=== PATIENT | female | born 1945 | race Caucasian/White ===

== ENCOUNTER 2020-08-25 00:09 | Outpatient (CLI) | payer MEDICARE, OTHER, SELFPAY ==
[2020-08-25 19:00] LABS: SARS-CoV-2 RNA PCR Negative
== END 2020-08-25 00:10 | disposition home or self-care (01) ==
LOC: ANHCOVIDDT 00:09
PROVIDERS: PCP Internal Medicine; Visit Provider Internal Medicine Gastroenterology
DX: Z01.812 Encounter for preprocedural laboratory examination (principal); Z20.828 Contact with and (suspected) exposure to other viral communicable diseases
CPT/HCPCS: 87635; C9803; U0003

== ENCOUNTER 2020-08-27 00:53 | Day surgery (SDC) | payer MEDICARE, OTHER, SELFPAY ==
[2020-08-19 14:36] VITALS: BMI 32.8
--- NOTE | 2020-08-27 08:41 | WPDGICN ---
Assessment and Plan Assessment and plan (1) Chronic GERD: Code(s): K21.9 - Gastro-esophageal reflux disease without esophagitis Status: Acute Assessment and Plan: Patient with chronic GE reflux disease greater than 30 years. Recent mild dysphagia noted. Her dose of proton pump inhibitors has gradually increased. Plan is for surveillance EGD. Continue Nexium 40 mg p.o. daily. Anti-reflux measures. Further recommendations will be given after endoscopy. GI Consult Note Consult date/time: 08/27/20 08:41 HPI: Eve Lindsay is a 75 year old female seen in evaluation at the request of Dr Stephen. Patient has a long history of acid reflux. She has heartburn. Recently has noticed slow passage of food. She has been maintained on Nexium. The dose of medications over the years has gradually increased. Patient denies any bleeding or weight loss. Her family history is noncontributory. She states has been 30 years since last endoscopy. She is somewhat concerned because of dysphagia and poor response to medications recently. Review of Systems Review of Systems: All systems reviewed & are unremarkable except as noted in HPI and below PMFSH Past Medical History Medical History ITB syndrome Statin myopathy with simvastatin Social History Social History Years smoked: 15 Smoking status: Former smoker Tobacco type: cigarettes Second hand tobacco smoke exposure: No Alcohol intake: current Alcohol use details: Occasional Beer Substance use: never Substance use type: does not use Living arrangements: with family Gender identity (if verbalized by the patient): Female Spiritual care concerns: No Meds Home Medications and Allergies Home Medications Medication Instructions Recorded Confirmed Type coenzyme Q10 150 mg capsule 150 mg PO DAILY 90 Days #90 cap 08/05/20 08/19/20 Rx esomeprazole magnesium 40 mg 40 mg PO DAILY 90 Days #90 cap 08/05/20 08/19/20 Rx capsule,delayed release febuxostat 40 mg tablet 40 mg PO DAILY 90 Days #90 tablet 08/05/20 08/19/20 Rx metformin 500 mg tablet,extended 500 mg PO DAILY 90 Days #90 tablet 08/05/20 08/19/20 Rx release 24 hr omega-3 acid ethyl esters 1 gram 4 cap PO DAILY 90 Days #360 cap 08/05/20 08/19/20 Rx capsule rosuvastatin 10 mg tablet 10 mg PO DAILY 90 Days #90 tablet 08/05/20 08/19/20 Rx triamterene 75 1 tablet PO DAILY 90 Days #90 08/11/20 08/19/20 Rx mg-hydrochlorothiazide 50 mg tablet tablet calcium carbonate-vitamin D3 1 tablet PO BID 08/19/20 08/19/20 History [Calcium with Vitamin D] cholecalciferol (vitamin D3) 10 mcg PO DAILY 08/19/20 08/19/20 History [Vitamin D3] melatonin 10 mg PO HS PRN 08/19/20 08/19/20 History xdyfezfa-wfv-MP-lycopen-lutein 1 tablet PO DAILY 08/19/20 08/19/20 History [Centrum Silver] vitamin B complex [B 1 tablet PO DAILY 08/19/20 08/19/20 History Complex-Vitamin B12] Allergies Allergy/AdvReac Type Severity Reaction Status Date / Time amoxicillin Allergy Unknown Rash Verified 08/27/20 08:42 poison jag extract Allergy Unknown Rash Verified 08/27/20 08:42 Exam Narrative: Exam Narrative: Physical exam reveals patient to be alert. Vital signs stable. HEENT exam unremarkable. Lungs are clear to auscultation and percussion. Heart is without murmur or extra sounds. Abdominal exam bowel sounds are present soft nontender with no organomegaly. Digital external rectal exam normal.
[2020-08-27 08:47] VITALS: BP 149/77; PULSE 75; RESP 17; TEMP 36.3; O2SAT 100; BMI 33.8
[2020-08-27] MEDS: LACTATED RINGERS 1,000 ML 150 ML IV CONT (08:59)
[2020-08-27 09:03] LABS: Glucose Point of Care 106 (65-105)
--- NOTE | 2020-08-27 09:18 | WPDANESEPPF ---
Anes - Initial Pre Proc Eval Procedure: Operation Date: 08/27/20 09:30 Proposed Procedures p Esophagogastroduodenoscopy - Kennedy Fuentes MD Date/Time: 08/27/20 09:18 Surgeon: Kennedy Fuentes MD Pre Op Diagnosis: Gerd Patient Data Age: 75 Gender: F Height: 5 ft 3 in Weight: 86.7 kg Last Vital Signs Temp 36.3 C L 08/27/20 08:47 Pulse 75 08/27/20 08:47 Resp 17 08/27/20 08:47 BP 149/77 H 08/27/20 08:47 Pulse Ox 100 08/27/20 08:47 Allergies Allergy/AdvReac Type Severity Reaction Status Date / Time amoxicillin Allergy Unknown Rash Verified 08/27/20 08:42 poison jag extract Allergy Unknown Rash Verified 08/27/20 08:42 Home Medications Medication Instructions Recorded Confirmed Type coenzyme Q10 150 mg capsule 150 mg PO DAILY 90 Days #90 cap 08/05/20 08/27/20 Rx esomeprazole magnesium 40 mg 40 mg PO DAILY 90 Days #90 cap 08/05/20 08/27/20 Rx capsule,delayed release febuxostat 40 mg tablet 40 mg PO DAILY 90 Days #90 tablet 08/05/20 08/27/20 Rx metformin 500 mg tablet,extended 500 mg PO DAILY 90 Days #90 tablet 08/05/20 08/27/20 Rx release 24 hr omega-3 acid ethyl esters 1 gram 4 cap PO DAILY 90 Days #360 cap 08/05/20 08/27/20 Rx capsule rosuvastatin 10 mg tablet 10 mg PO DAILY 90 Days #90 tablet 08/05/20 08/27/20 Rx triamterene 75 1 tablet PO DAILY 90 Days #90 08/11/20 08/27/20 Rx mg-hydrochlorothiazide 50 mg tablet tablet calcium carbonate-vitamin D3 1 tablet PO BID 08/19/20 08/27/20 History [Calcium with Vitamin D] cholecalciferol (vitamin D3) 10 mcg PO DAILY 08/19/20 08/27/20 History [Vitamin D3] melatonin 10 mg PO HS PRN 08/19/20 08/27/20 History eficuaqp-ook-AS-lycopen-lutein 1 tablet PO DAILY 08/19/20 08/27/20 History [Centrum Silver] vitamin B complex [B 1 tablet PO DAILY 08/19/20 08/27/20 History Complex-Vitamin B12] Laboratory Tests 08/27/20 09:01 POC Capillary Glucose 106 mg/dl mg/dl (65-105) Patient hx anesthesia problems: none Family hx anesthesia problems: none PMFSH Past Medical History Medical History (Updated 08/27/20 @ 09:18 by Nathan Campbell MD) ITB syndrome Obesity Statin myopathy with simvastatin Social History Social History Years smoked: 15 Smoking status: Former smoker Tobacco type: cigarettes Second hand tobacco smoke exposure: No Alcohol intake: current Alcohol use details: Occasional Beer Substance use: never Substance use type: does not use Living arrangements: with family Gender identity (if verbalized by the patient): Female Spiritual care concerns: No Anes - Eval Final PreProcedure Day of Procedure 08/27/20 09:18 Patient weight: obese Heart: regular rate and rhythm Lungs: clear to auscultation Airway: Mallampati scale class II Neurological: alert and oriented Last oral intake: >/= 8 hours ASA classification: III Emergent: no Anesthetic plan: proceed Anesthesia type and monitoring: general GIVS and standard monitoring Informed Consent: The patient's anesthetic plan and its attendant risks and benefits were discussed with the patient/family/POA. Questions were solicited and answers provided to the satisfaction of the patient/family/POA.
[2020-08-27] MEDS: BENZOCAINE (*SP) 60 ML SPRAY CAN (HURRICAINE) 1 SPRAY MUCOUS MEM (09:32)
[2020-08-27 09:47] VITALS: BP 108/49; PULSE 64; RESP 27; O2SAT 97
[2020-08-27 09:57] VITALS: BP 98/53; PULSE 73; RESP 23; O2SAT 99
[2020-08-27 10:07] VITALS: BP 111/54; PULSE 74; RESP 18; O2SAT 100
== END 2020-08-27 10:35 | disposition home or self-care (01) ==
PROVIDERS: PCP Internal Medicine; Visit Provider Internal Medicine Gastroenterology
PROC: 0DJ08ZZ Inspection of Upper Intestinal Tract, Via Natural or Artificial Opening Endoscopic (ICD-10-PCS; CPT 43235; principal; 2020-08-27 09:30)
DX: K21.9 Gastro-esophageal reflux disease without esophagitis (principal); M76.30 Iliotibial band syndrome, unspecified leg; Z87.891 Personal history of nicotine dependence; E66.9 Obesity, unspecified; Z68.33 Body mass index [BMI] 33.0-33.9, adult
CPT/HCPCS: 43239; 87081; J2704; J7120

== ENCOUNTER → 2021-01-20 06:56 | Outpatient (CLI) | payer MEDICARE, OTHER, SELFPAY ==
[2021-01-20 17:21] LABS: SARS-CoV-2 RNA PCR Negative
== END ==
PROVIDERS: PCP Internal Medicine
DX: Z01.812 Encounter for preprocedural laboratory examination (principal); Z20.822 Contact with and (suspected) exposure to COVID-19
CPT/HCPCS: C9803; U0003; U0005

== ENCOUNTER → 2021-03-09 01:09 | Outpatient (CLI) | payer MEDICARE, OTHER, SELFPAY ==
[2021-03-09 20:47] LABS: SARS-CoV-2 RNA PCR Negative
== END ==
PROVIDERS: PCP Family Medicine; Visit Provider Internal Medicine Gastroenterology
DX: Z01.812 Encounter for preprocedural laboratory examination (principal); Z20.822 Contact with and (suspected) exposure to COVID-19
CPT/HCPCS: C9803; U0003; U0005

== ENCOUNTER 2021-03-12 01:44 | Day surgery (SDC) | payer MEDICARE, OTHER, SELFPAY ==
[2021-03-03 12:47] VITALS: BMI 32.8
[2021-03-12 10:36] LABS: Glucose Point of Care 85 (65-105)
[2021-03-12 10:37] VITALS: BP 142/70; PULSE 72; RESP 18; TEMP 36.2; O2SAT 100
[2021-03-12] MEDS: LACTATED RINGERS 1,000 ML 150 ML IV CONT (10:40)
--- NOTE | 2021-03-12 11:39 | WPDANESEPPF ---
Anes - Initial Pre Proc Eval Procedure: Operation Date: 03/12/21 11:30 Proposed Procedures p Colonoscopy - Kennedy Fuentes MD Date/Time: 03/12/21 11:39 Surgeon: Kennedy Fuentes MD Pre Op Diagnosis: elevated tumor marker (CEA level) Patient Data Age: 75 Gender: F Height: 5 ft 3 in Weight: 82 kg Last Vital Signs Temp 97.2 F L 03/12/21 10:37 Pulse 72 03/12/21 10:37 Resp 18 03/12/21 10:37 BP 142/70 H 03/12/21 10:37 Pulse Ox 100 03/12/21 10:37 Allergies Allergy/AdvReac Type Severity Reaction Status Date / Time rosuvastatin [From Crestor] Allergy Severe leg cramps Verified 03/12/21 10:34 simvastatin [From Zocor] Allergy Mild leg cramps Verified 03/12/21 10:34 Mqcinlj-Oqy-Kzi Reductase Allergy Mild leg cramps Verified 03/12/21 10:34 Inhibitor amoxicillin Allergy Unknown Rash Verified 03/12/21 10:34 poison jag extract Allergy Unknown Rash Verified 03/12/21 10:34 Home Medications Medication Instructions Recorded Confirmed Type calcium carbonate-vitamin D3 1 tablet PO BID 08/19/20 03/12/21 History [Calcium with Vitamin D] cholecalciferol (vitamin D3) 10 mcg PO DAILY 08/19/20 03/12/21 History [Vitamin D3] melatonin 10 mg PO HS PRN 08/19/20 03/12/21 History ejertzwb-ken-TS-lycopen-lutein 1 tablet PO DAILY 08/19/20 03/12/21 History [Centrum Silver] vitamin B complex [B 1 tablet PO DAILY 08/19/20 03/12/21 History Complex-Vitamin B12] evolocumab 140 mg/mL subcutaneous 140 mg SUBCUT .QMONTH 30 Days #1 ml 12/09/20 03/05/21 Rx pen injector metformin 500 mg tablet,extended 500 mg PO DAILY 90 Days #90 tablet 02/03/21 03/12/21 Rx release 24 hr febuxostat 40 mg tablet 40 mg PO DAILY 90 Days #90 tablet 02/24/21 03/12/21 Rx coenzyme Q10 150 mg capsule 150 mg PO DAILY cap 03/02/21 03/12/21 History esomeprazole magnesium [Nexium] 40 mg PO DAILY 03/03/21 03/12/21 History omega-3 acid ethyl esters [Lovaza] 4 cap PO DAILY 03/03/21 03/12/21 History triamterene-hydrochlorothiazid 1 tablet PO DAILY 03/03/21 03/12/21 History [Maxzide] Laboratory Tests 03/12/21 10:32 POC Capillary Glucose 85 mg/dl mg/dl (65-105) Patient hx anesthesia problems: none Family hx anesthesia problems: none PMFSH Past Medical History Medical History Arthritis Diabetes GERD (gastroesophageal reflux disease) ITB syndrome Obesity Statin myopathy with simvastatin Surgical History Surgical History H/O section 1969 1973 H/O knee surgery 01/20/2021 left side History of esophagogastroduodenoscopy 08/27/2020 Dr. Fuentes History of hip surgery right side 2010 Family History Family History Mother Hypertension Sibling Alcoholism Social History Social History Smoking packs per day: 1 Smoking cigarettes per day: 20.0 Years smoked: 15 Smoking pack-years: 15.00 Smoking status: Former smoker Tobacco type: cigarettes Second hand tobacco smoke exposure: No Alcohol intake: current Drinks per week: 1 Substance use: never Substance use type: does not use and other Other substance usage details: CBD oil Living arrangements: with family Gender identity (if verbalized by the patient): Female Spiritual care concerns: No Agree to blood products: Yes Anes - Eval Final PreProcedure Day of Procedure 03/12/21 11:39 Patient weight: obese Heart: regular rate and rhythm Lungs: clear to auscultation Airway: Mallampati scale class II Neurological: alert and oriented Last oral intake: >/= 8 hours ASA classification: III Emergent: no Anesthetic plan: proceed Anesthesia type and monitoring: general GIVS and standard monitoring Informed Consent: The patient's anesthetic plan and its attendant risks and benefits were d
--- NOTE | 2021-03-12 12:08 | WPDGICN ---
Assessment and Plan Assessment and plan (1) GERD (gastroesophageal reflux disease): Code(s): K21.9 - Gastro-esophageal reflux disease without esophagitis Status: Acute Assessment and Plan: This is GE reflux disease appears stable on proton pump inhibitor therapy. Recent EGD was unremarkable in 2019. Continued anti reflux measures encouraged. (2) Elevated CEA: Code(s): R97.0 - Elevated carcinoembryonic antigen [CEA] Status: Acute Assessment and Plan: Mild elevation of CEA level noted. For this recent colonoscopy will be performed. CEA level is best used to monitor patient with known carcinoma should not be repeated unless this is identified. (3) Elevated liver enzymes: Code(s): R74.8 - Abnormal levels of other serum enzymes Status: Acute Assessment and Plan: Elevated LFTs of uncertain significance. This was noted November. Plan to repeat LFTs today. This could be his perhaps related to medications, possible infection at that time. Further recommendations will be given [place] refills test. GI Consult Note Consult date/time: 03/12/21 12:08 HPI: Eve Lindsay is a 75 year old female Seen in evaluation at the request of Dr. Arreguin., patient was seen by primary care service in November. At that time mild elevation of LFTs were identified. Apparently as CEA level was also obtained and found to be modest the CEA was elevated. For this reason colonoscopy was requested. patient states her bowel habits are normal. She denies abdominal pain. She has had no bleeding. Colonoscopy in 2016 revealed hemorrhoids and diverticular disease. No polyps were identified. Her family history is noncontributory. Review of Systems Review of Systems: All systems reviewed & are unremarkable except as noted in HPI and below PMFSH Past Medical History Medical History Arthritis Diabetes GERD (gastroesophageal reflux disease) ITB syndrome Obesity Statin myopathy with simvastatin Surgical History Surgical History H/O section 1970 1973 H/O knee surgery 01/20/2021 left side History of esophagogastroduodenoscopy 08/27/2020 Dr. Fuentes History of hip surgery right side 2009 Family History Family History Mother Hypertension Sibling Alcoholism Social History Social History Smoking packs per day: 1 Smoking cigarettes per day: 20.0 Years smoked: 15 Smoking pack-years: 15.00 Smoking status: Former smoker Tobacco type: cigarettes Second hand tobacco smoke exposure: No Alcohol intake: current Drinks per week: 1 Substance use: never Substance use type: does not use and other Other substance usage details: CBD oil Living arrangements: with family Gender identity (if verbalized by the patient): Female Spiritual care concerns: No Agree to blood products: Yes Meds Home Medications and Allergies Home Medications Medication Instructions Recorded Confirmed Type calcium carbonate-vitamin D3 1 tablet PO BID 08/19/20 03/12/21 History [Calcium with Vitamin D] cholecalciferol (vitamin D3) 10 mcg PO DAILY 08/19/20 03/12/21 History [Vitamin D3] melatonin 10 mg PO HS PRN 08/19/20 03/12/21 History hydklsvk-yct-FL-lycopen-lutein 1 tablet PO DAILY 08/19/20 03/12/21 History [Centrum Silver] vitamin B complex [B 1 tablet PO DAILY 08/19/20 03/12/21 History Complex-Vitamin B12] evolocumab 140 mg/mL subcutaneous 140 mg SUBCUT .QMONTH 30 Days #1 ml 12/09/20 03/05/21 Rx pen injector metformin 500 mg tablet,extended 500 mg PO DAILY 90 Days #90 tablet 02/03/21 03/12/21 Rx release 24 hr febuxostat 40 mg tablet 40 mg PO DAILY 90 Days #90 tablet 02/24/21 03/12/21 Rx coenzyme Q10 150 mg capsule
[2021-03-12 12:10] VITALS: BP 135/65; PULSE 68; RESP 21; O2SAT 100
[2021-03-12 12:20] VITALS: BP 133/71; PULSE 69; RESP 18; O2SAT 100
[2021-03-12 12:30] VITALS: BP 149/80; PULSE 69; RESP 20; O2SAT 100
== END 2021-03-12 12:53 | disposition home or self-care (01) ==
PROVIDERS: PCP Family Medicine; Visit Provider Internal Medicine Gastroenterology
PROC: 0DJD8ZZ Inspection of Lower Intestinal Tract, Via Natural or Artificial Opening Endoscopic (ICD-10-PCS; CPT 45378; principal; 2021-03-12 11:30)
DX: Z12.11 Encounter for screening for malignant neoplasm of colon (principal); R97.0 Elevated carcinoembryonic antigen [CEA]; K64.8 Other hemorrhoids; K57.30 Diverticulosis of large intestine without perforation or abscess without bleeding; M19.90 Unspecified osteoarthritis, unspecified site; E11.9 Type 2 diabetes mellitus without complications; K21.9 Gastro-esophageal reflux disease without esophagitis; M76.30 Iliotibial band syndrome, unspecified leg; G72.0 Drug-induced myopathy; Z87.891 Personal history of nicotine dependence; E66.9 Obesity, unspecified; Z68.32 Body mass index [BMI] 32.0-32.9, adult; R74.8 Abnormal levels of other serum enzymes; Z79.84 Long term (current) use of oral hypoglycemic drugs
CPT/HCPCS: G0121; 82948; J2704; J7120

== ENCOUNTER 2022-05-04 09:21 | Outpatient (CLI) | payer MEDICARE, OTHER, SELFPAY ==
--- NOTE | 2022-05-11 12:38 | WPDHOLTEREM ---
Holter/Event Monitor Holter/Event Monitor Date of procedure: 05/04/22 Holter/Event Procedure: 24 Hr Holter Monitor Indications: Cardiac arrhythmia Conclusion: 1. 24 hour holter monitor on 05/04/22. 2. Underlying rhythm is sinus rhythm. HR range 62-115 bpm; average HR 79 bpm. 3. There are 8,777 premature supraventricular complexes, 1,261 supraventricular couplets, 18 supraventricular bigeminy, 4,325 supraventricular trigeminy. No supraventricular tachycardia. 4. There are 128 premature ventricular complexes. No ventricular tachycardia. 5. No sinoatrial blocks. First degree AV block. No significant pauses greater than 2 seconds. 6. No symptoms available for correlation.
== END 2022-05-04 09:22 | disposition home or self-care (01) ==
LOC: ANHCARD 09:23
PROVIDERS: PCP Family Medicine; Visit Provider Family Medicine
DX: I49.9 Cardiac arrhythmia, unspecified (principal)
CPT/HCPCS: 93225; 93226

== ENCOUNTER 2022-10-17 12:00 | Outpatient (CLI) | payer MEDICARE, OTHER, SELFPAY ==
[2022-10-17 14:27] LABS: Basophils Absolute Auto 0.1 K/mm3 (0.0-0.1); Basophils Percent Auto 0.7 % (0.2-1.2); Eosinophils Absolute Auto 0.4 K/mm3 (0-0.3); Eosinophils Percent Auto 4.8 % (0-4.4); Hematocrit 33.2 % (37.0-47.0); Hemoglobin 11.2 g/dL (12.0-15.0); Immature Granulocyte Absolute 0.04 K/mm3 (0.00-0.031); Immature Granulocyte Percent A 0.5 % (0-0.5); Lymphocytes Absolute Auto 2.09 K/mm3 (0.9-3.2); Lymphocytes Percent Auto 24.5 % (18.3-44.2); Mean Corpuscular HGB Conc 33.7 g/dl (32-36); Mean Corpuscular Hemoglobin 31.1 pg (26-34); Mean Corpuscular Volume 92.2 fl (80-100); Monocytes Absolute Auto 0.9 K/mm3 (0.1-0.6); Monocytes Percent Auto 10.1 % (2.6-8.5); Neutrophils Absolute Auto 5.1 K/mm3 (1.3-6.7); Neutrophils Percent Auto 59.4 % (45.5-73.1); Platelet Count Result 242 k/mm3 (150-375); White Blood Count 8.5 K/mm3 (4.5-10.0)
[2022-10-17 14:34] LABS: Urine Cotinine NEGATIVE
[2022-10-18 05:26] LABS: Albumin Level 4.3 g/dL (3.5-5.1); Anion Gap 9 mmol/L (8-16); Blood Urea Nitrogen 24 mg/dL (7-17); Calcium 9.2 mg/dL (8.4-10.2); Carbon Dioxide 24 mmol/L (22-30); Chloride 96 mmol/L (98-107); Estimated Glomerular Filt Rate 54; Glucose 92 mg/dL (65-110); Potassium 4.3 mmol/L (3.4-5.0); Sodium 129 mmol/L (137-145)
== END 2022-10-17 12:01 | disposition home or self-care (01) ==
PROVIDERS: PCP Family Medicine; Visit Provider Orthopaedic Surgery
DX: M17.12 Unilateral primary osteoarthritis, left knee (principal)
CPT/HCPCS: 80048; 80307; 82040; 85025; 87081

== ENCOUNTER 2022-11-02 00:38 | Day surgery (SDC) | payer MEDICARE, OTHER, SELFPAY ==
[2022-10-17 12:16] VITALS: BMI 33.9
--- NOTE | 2022-10-17 13:08 | PC.NURSE ---
Report to the Outpatient Waiting Room, entrance under the green pavilion located off [address], at time ___1000____ on date ___11/02/22____. Planned Procedure Time: __1200 . Time changes happen often and if your time is changed the preop area will call you the afternoon before. - You and your visitor will be asked to self-screen and do not enter if you have any COVID symptoms. - Only one visitor is requested with a max of two and NO children visitors are allowed at this time. - The patient visitor may be requested to leave or wait in car when not with patient due to distancing restrictions. - A mask is optional within the hospital. Patients may have clear liquids (water, carbonated beverages, clear teas, apple juice) until 3 hours prior to surgery with a maximum of 20 ounces. - No food from midnight until time of surgery - Infants may have breast milk until 4 hours before surgery, formula 6 hours prior to surgery. - Children will be allowed to drink immediately following surgery. If applicable, please bring a bottle or sippy cup to assist with drinking. Juice, water, soda, and popsicles are readily available. For infants on formula, please bring formula the day of surgery. Pacifiers are allowed. Take the following medications with a SIP of water the morning of surgery: ___NONE Medications to discontinue per physician __PT STATES PER DR WYATT HOLD FISH OIL 7 DAYS PRE OP. ALL VITAMINS AND SUPPLEMENTS 3 DAYS PRE OP Date to take last dose__FISH OIL 10/25/22 ALL VIT/SUPP 10/29/22 total joint class 10/19/22 at 10 am Please no make-up, nail thai, hairspray, perfume, deodorant, or body powder the day of surgery. No jewelry (including any body piercings) or valuables the day of surgery, leave them at home. Please take a shower or bath the night before, or the morning of, surgery with an antibacterial soap. Wear comfortable, loose fitting clothing. Children are encouraged to wear pajamas. - Jewelry must be removed prior to entering the operating room. Rings and piercings that are not removed may be cut off. - The hospital will not accept responsibility for valuables. - Please leave all valuables, including medications, at home the day of surgery. If you are going home after surgery, a licensed diesel pile driver operator must drive you home. - NO public transportation without another adult if you receive anesthesia. - We recommend that an adult stay with you for 24 hours following discharge. - We also recommend that you do not drive, make important decision, drink alcoholic beverages, or take any drugs that were not prescribed by your health care provider for at least 24 hours after your discharge time. For Pediatric surgeries, we recommend two adults accompany the child home. Follow any additional instructions given to you from your surgeon. If you or anyone in your household have experienced Covid symptoms in the past week, please notify your surgeon or the nurse liaison at the phone number below for possible testing. VERBAL AND WRITTEN instructions given to __PATIENT and asked if any additional questions and then verbalized understanding. Patient advised to call surgeon office or pre surgery nurse liaison [phone] if any additional questions.
[2022-10-17 13:38] VITALS: BP 155/80; PULSE 63; RESP 18; TEMP 36.9; O2SAT 100
--- NOTE | 2022-10-31 12:18 | PM.IMHP ---
H&P: HPI History of Present Illness Date/Time: 10/31/22 12:18 Chief Complaint: Left knee DJD Narrative: 77-year-old female patient of Dr. Pollock who presents today for left total knee arthroplasty. Patient has been having pain in this left knee for years. She has severe lateral compartment osteoarthritis. She has been using Celebrex daily and has been getting cortisone injections as often as every 3 months. The last 2 injections that she has had have offered her no improvement of her symptoms. She is fairly miserable on a daily basis with the pain in the knee. It is affecting her daily life. She feels this point she is ready to proceed with total knee arthroplasty rather continue nonsurgical treatment Review of Systems Review of Systems: All systems reviewed & are unremarkable except as noted in HPI and below PMFSH Past Medical History Medical History Arthritis Diabetes GERD (gastroesophageal reflux disease) ITB syndrome Obesity Statin myopathy with simvastatin Surgical History Surgical History H/O section 1969 1973 H/O knee surgery 01/20/2021 left side History of esophagogastroduodenoscopy 08/27/2020 Dr. Fuentes History of hip surgery right side 2009 Family History Family History Mother Hypertension Sibling Alcoholism Social History Social History Smoking packs per day: 1 Smoking cigarettes per day: 20.0 Years smoked: 15 Smoking pack-years: 15.00 Smoking status: Former smoker Tobacco type: cigarettes Second hand tobacco smoke exposure: No Smoking end date: 11/13/84 Alcohol intake: current Drinks per week: 1 Alcohol use details: TWO DRINKS PER MONTH Substance use: never Substance use type: does not use and other Other substance usage details: CBD oil Gender identity (if verbalized by the patient): Female Spiritual care concerns: No Agree to blood products: Yes Meds Home Medications and Allergies Home Medications Medication Instructions Recorded Confirmed Type calcium carbonate 600 mg-vitamin 1 tablet PO BID 08/19/20 10/17/22 History D3 10 mcg (400 unit) tablet (Calcium with Vitamin D) cholecalciferol (vitamin D3) 10 10 mcg PO DAILY 08/19/20 10/17/22 History mcg (400 unit) chewable tablet (Vitamin D3) melatonin 10 mg tablet 10 mg PO HS PRN Insomnia 08/19/20 10/17/22 History xwzbtquf-yfg-rmvxx acid 0.4 1 tablet PO DAILY 08/19/20 10/17/22 History mg-lycopene 300 mcg-lutein 250 mcg tablet (Centrum Silver) coenzyme Q10 150 mg capsule 150 mg PO DAILY 03/02/21 10/17/22 History omega-3 acid ethyl esters 1 gram 4 cap PO DAILY 03/03/21 10/17/22 History capsule (Lovaza) irbesartan 300 mg tablet 300 mg PO DAILY #90 tabs 06/27/22 10/17/22 Rx metformin 500 mg tablet,extended See Rx Instructions .Route 07/19/22 10/17/22 Rx release 24 hr .COMPLEX #90 tabs esomeprazole magnesium 40 mg See Rx Instructions .Route 08/26/22 10/17/22 Rx capsule,delayed release .COMPLEX #90 caps allopurinol 100 mg tablet See Rx Instructions .Route 09/26/22 10/17/22 Rx .COMPLEX #90 tabs triamterene 75 See Rx Instructions .Route 09/26/22 10/17/22 Rx mg-hydrochlorothiazide 50 mg tablet .COMPLEX #90 tabs flaxseed 1,000 mg capsule 1,000 mg PO DAILY 10/17/22 10/17/22 History celecoxib 100 mg capsule See Rx Instructions .Route 10/20/22 Rx .COMPLEX #180 caps Allergies Allergy/AdvReac Type Severity Reaction Status Date / Time rosuvastatin [From Crestor] Allergy Severe leg cramps Verified 10/17/22 12:18 simvastatin [From Zocor] Allergy Mild leg cramps Verified 10/17/22 12:18 Cmxcilk-AVR-NrD Reductase Allergy Mild leg cramps Verified 10/17/22 12:18 Inhibitor [Klabfys-Ggq-Pok Reductase Inhibitor] amoxicillin Allergy Unkn
[2022-11-02] VITALS (15 sets, daily range): BP systolic 105–172; BP diastolic 52–77; PULSE 67–93; RESP 12–100; TEMP 36.1–36.8; O2SAT 95–100; BMI 33.4
--- NOTE | ~2022-11-02 | XR_ITS ---
EXAMINATION: XR knee LT 2V DATE: 11/02/2022 16:04 INDICATION: Postoperative evaluation following left total knee arthroplasty. TECHNIQUE: Anteroposterior and lateral views of the left knee were obtained. COMPARISON: None. FINDINGS: Left total knee arthroplasty with patellar resurfacing appears well seated and in near anatomic align ment. No fractures identified. Expected postoperative subcutaneous and intra-articular gas. IMPRESSION: 1. Left total knee arthroplasty, negative for postoperative purposes. Reviewed, dictated and finalized at location A. CULTURAL EQUIPMENT OPERATOR
[2022-11-02] MEDS: TRANEXAMIC ACID 1,000MG/ISO100 1,000 MG/100 ML BAG 200 MG IVPB (10:30)
[2022-11-02] MEDS: ACETAMINOPHEN 500 MG TABLET 1000 MG PO ×2 (10:30→23:26)
[2022-11-02] MEDS: LACTATED RINGERS 1,000 ML 30 ML IV CONT ×3 (10:30→16:10)
[2022-11-02 10:45] LABS: Glucose Point of Care 99 mg/dl (65-105)
--- NOTE | 2022-11-02 11:01 | WPDANESEPPF ---
Anes - Initial Pre Proc Eval Procedure: Operation Date: 11/02/22 12:00 Proposed Procedures p Left Total Knee Arthroplasty - Dillon Fair MD Date/Time: 11/02/22 11:01 Surgeon: Dillon Fair MD Pre Op Diagnosis: OA LEFT knee Patient Data Age: 77 Gender: F Height: 1.6 m Weight: 86.9 kg Last Vital Signs Temp 36.9 C 10/17/22 13:38 Pulse 63 10/17/22 13:38 Resp 18 10/17/22 13:38 BP 155/80 H 10/17/22 13:38 Pulse Ox 100 10/17/22 13:38 O2 Del Method Room Air 10/17/22 13:38 Allergies Allergy/AdvReac Type Severity Reaction Status Date / Time rosuvastatin [From Crestor] Allergy Severe leg cramps Verified 10/31/22 14:25 simvastatin [From Zocor] Allergy Mild leg cramps Verified 10/31/22 14:25 Mpmdope-VGR-NbV Reductase Allergy Mild leg cramps Verified 10/31/22 14:25 Inhibitor [Ajjidmi-Uai-Sbb Reductase Inhibitor] amoxicillin Allergy Unknown Rash Verified 10/31/22 14:25 poison jag extract Allergy Unknown Rash Verified 10/31/22 14:25 lisinopril AdvReac cough Verified 10/31/22 14:25 Home Medications Medication Instructions Recorded Confirmed Type calcium carbonate 600 mg-vitamin 1 tablet PO BID 08/19/20 10/17/22 History D3 10 mcg (400 unit) tablet (Calcium with Vitamin D) cholecalciferol (vitamin D3) 10 10 mcg PO DAILY 08/19/20 10/17/22 History mcg (400 unit) chewable tablet (Vitamin D3) melatonin 10 mg tablet 10 mg PO HS PRN Insomnia 08/19/20 10/17/22 History vlrsnrqv-knz-bbkni acid 0.4 1 tablet PO DAILY 08/19/20 10/17/22 History mg-lycopene 300 mcg-lutein 250 mcg tablet (Centrum Silver) coenzyme Q10 150 mg capsule 150 mg PO DAILY 03/02/21 10/17/22 History omega-3 acid ethyl esters 1 gram 4 cap PO DAILY 03/03/21 10/17/22 History capsule (Lovaza) irbesartan 300 mg tablet 300 mg PO DAILY #90 tabs 06/27/22 10/17/22 Rx metformin 500 mg tablet,extended See Rx Instructions .Route 07/19/22 10/17/22 Rx release 24 hr .COMPLEX #90 tabs esomeprazole magnesium 40 mg See Rx Instructions .Route 08/26/22 10/17/22 Rx capsule,delayed release .COMPLEX #90 caps allopurinol 100 mg tablet See Rx Instructions .Route 09/26/22 10/17/22 Rx .COMPLEX #90 tabs triamterene 75 See Rx Instructions .Route 09/26/22 10/17/22 Rx mg-hydrochlorothiazide 50 mg tablet .COMPLEX #90 tabs flaxseed 1,000 mg capsule 1,000 mg PO DAILY 10/17/22 10/17/22 History celecoxib 100 mg capsule See Rx Instructions .Route 10/20/22 Rx .COMPLEX #180 caps Laboratory Tests 11/02/22 10:42 POC Capillary Glucose 99 mg/dl mg/dl (65-105) Patient hx anesthesia problems: none Family hx anesthesia problems: none Results Review: All pre-operative results and documents have been reviewed as part of the pre-operative evaluation. PENDING SALE TO [facility] Past Medical History Medical History Arthritis Diabetes GERD (gastroesophageal reflux disease) ITB syndrome Obesity Preoperative clearance Statin myopathy with simvastatin Surgical History Surgical History H/O section 1969 1973 H/O knee surgery 01/20/2021 left side History of esophagogastroduodenoscopy 08/27/2020 Dr. Fuentes History of hip surgery right side 2009 Family History Family History Mother Hypertension Sibling Alcoholism Social History Social History Smoking packs per day: 1 Smoking cigarettes per day: 20.0 Years smoked: 15 Smoking pack-years: 15.00 Smoking status: Former smoker Tobacco type: cigarettes Second hand tobacco smoke exposure: No Smoking end date: 11/13/84 Alcohol intake: current Drinks per week: 1 Alcohol use details: TWO DRINKS PER MONTH Substance use: never Substance use type: does not use and other Other substance usage details: CBD oil Farhana
--- NOTE | 2022-11-02 11:55 | WPDHPUPDATE1 ---
History and Physical Update Update Date/Time: 11/02/22 11:55 History and Physical has been reviewed, including an updated exam of the patient. There are NO changes in the patient's condition. Risks, benefits, and alternatives have been discussed and questions answered. Patient agrees to proceed with procedure.
[2022-11-02] MEDS: ceFAZolin 2 GM/D5W 50 ML 2 GM/50 ML BAG IVPB (12:07)
[2022-11-02] MEDS: ceFAZolin SODIUM 1 GM VIAL 3 GM (12:53)
[2022-11-02] MEDS: GENTAMICIN BONE CEMENT REFOBACIN 1 EACH TOPICAL (14:13)
[2022-11-02] MEDS: ceFAZolin SODIUM 1 GM VIAL 2 GM IV PUSH (14:35)
[2022-11-02] MEDS: TRANEXAMIC ACID 1,000 MG/10 ML AMPUL 1000 MG IV PUSH (14:35)
--- NOTE | 2022-11-02 15:28 | SUR.OPER ---
50mL of clear yellow urine drained from marlow in OR
[2022-11-02] MEDS: fentaNYL CITRATE INJ (*CRX) 100 MCG/2 ML VIAL 25 MCG IV PUSH ×7 (16:00→17:00)
--- NOTE | 2022-11-02 16:05 | W.PM.PROC2 ---
Procedure Note - Detailed Date of Procedure 11/02/22 Pre-op Diagnosis OA LEFT knee Post-op Diagnosis Same Procedure Performed Left total knee arthroplasty Surgeon Dillon Fair MD [employer] Bessy Kelley Anesthesia General Description of Procedure Patient was brought to the operating room and general anesthesia was administered. Left knee was prepped draped usual fashion. She received 2 g of Ancef 1 g of vancomycin 1 g and tranexamic acid preoperatively. Limb was exsanguinated tourniquet elevated to 3 mmHg. A 7 in longitudinal midline incision was used in a vastus medialis splitting approach utilized splitting the vastus medialis at the superior pole of patella. Infrapatellar and suprapatellar fat pads were excised and a quadriceps synovectomy carried out. The patella measured 20-1/2 mm centrally. It was severely arthritic with high-grade cartilage loss in central and inferior pole of patella. Patella was cut to 15 mm. Protector cap was applied. Guide marek was inserted on the femoral canal after aspiration of canal contents using the 5 degree valgus cutting bushing 10 mm of bone removed the distal femur. This removed about 7 mm from lateral side. Next the tibial plateau was cut. We tried to making a skim cut to be just under the cartilage the posterior medial tibial plateau. The 1st cut left a little bit of cartilage remaining another 2 mm got through that. Bone quality was good. Cut was made perpendicular to the axis of the tibia. Flexion gap measured 8 mm medially 12 mm laterally. Meniscal remnants were excised PCL was recessed before making this determination. The femoral sizing guide was applied at 5? of external rotation which matched Whitesides line. Posterior referencing pinholes were placed in the 62.5 cutting guide applied AP and chamfer cuts were made this gave a line to line fit medial to lateral anterior posterior. The tibia was sized to a 67 which fit line to line anteromedially to posterolaterally a proper rotation this was punched. Trialing with the insert we had appropriate stability at 90? of flexion with a mm lateral opening at 90 and 2 medial. We lacked about 6 or 7? extension with no play medially or laterally. With the trials out use of the titers laterally than medially in extension. Additional 2 mm of bone was removed the distal femur. Posterior femoral osteophyte was removed. We did not perform a posterior capsular release. Posterolateral capsular release was performed from the tibia. On repeat trialing the knee came out to full extension with a negative bounce with 2-3 mm of medial opening on valgus stress and about a half a mm lateral opening but the IT band was still quite tight. Synovectomy with lateral aspect of knee was performed and the IT band carefully pie crusted which relaxed the little bit on trial and we had more of a physiologic tension on the IT band the lateral side opened up and 1/2 mm in tension. We had appropriate stability in flexion gravity flexion to 130?. Patella was sized for 31 thin lug holes drilled composite thickness was 22 mm. Patellar tracking was excellent throughout range of motion even with the tourniquet up. Step drill was used to make perforations in the tibial plateau and distal femur the bony surfaces thoroughly irrigated and dried 2 batches of methylmethacrylate 1 the gentamicin powder were used cement applied the 67 tibial component and the left CR 62.5 femoral component cement applied the tibia pressurized and tibial component fully seated. Cement applied the femur the femoral component fully seated the knee brought into extension with 11 mm 5 1 insert for pressurization 31 thin patella cemented. Tourniquet was released 106 minutes. After cement hardening excess cement was sought for removed hemostasis was achieved. We trialed with the 10 had the same stability parameters on range of motion as discussed above. The real 10 was placed locking pin was placed. Patellar tracking wa
[2022-11-02 16:10] LABS: Glucose Point of Care 138 mg/dl (65-105)
[2022-11-02] MEDS: ONDANSETRON INJ 4 MG/2 ML VIAL IV PUSH (16:50)
--- NOTE | 2022-11-02 17:53 | ADMGEN ---
This patient, Eve Lindsay, was admitted to [facility]- room 9 in preop. Patient/family oriented to hospital policies and general routines including ID bracelet, bed and alarms, visiting hours, pain management, procedures, bathroom and other care routines, personal items, smoking policy, room service/diet, and visiting hours. Information on how to activate the Rapid Response Team has been discussed. Patient/Family are encouraged to report perceived risks to care and to ask questions if they do not understand what they are told or what they should do.
[2022-11-02] MEDS: PANTOPRAZOLE 40 MG TABLET PO (17:57)
[2022-11-02] MEDS: SENNA/DOCUSATE SODIUM TABLET 2 TAB PO (17:57)
[2022-11-02] MEDS: oxyCODONE HCL (*CRX) 5 MG TAB IR PO ×2 (17:57→20:22)
[2022-11-02] MEDS: metFORMIN HCL XR 500 MG TAB.SR.24H PO (18:27)
[2022-11-02] MEDS: SODIUM CHLORIDE 0.9% IV 1,000 ML 125 ML IV CONT (18:28)
[2022-11-02] MEDS: allopurinoL 100 MG TABLET PO (18:28)
[2022-11-02] MEDS: MORPHINE SULFATE (*CRX) 2 MG/ML INJ IV PUSH (18:35)
[2022-11-02 20:03] LABS: Glucose Point of Care 140 mg/dl (65-105)
--- NOTE | 2022-11-02 20:20 | PM.IMCN ---
Assessment and Plan Assessment and plan (1) Left knee DJD: Code(s): M17.12 - Unilateral primary osteoarthritis, left knee Status: Acute Assessment and Plan: Status post total knee replacement. Management per Orthopedic surgery. Continue pain management. Physical therapy evaluation for discharge planning. (2) Hypertension: Code(s): I10 - Essential (primary) hypertension Status: Acute Assessment and Plan: Continue home medications. (3) Irregular cardiac rhythm: Code(s): I49.9 - Cardiac arrhythmia, unspecified Status: Acute Assessment and Plan: Currently in normal sinus rhythm. No tachycardia. (4) Diabetes: Code(s): E11.9 - Type 2 diabetes mellitus without complications Status: Acute Assessment and Plan: Continue home medications and monitor Accu-Cheks. (5) Chronic GERD: Code(s): K21.9 - Gastro-esophageal reflux disease without esophagitis Status: Acute Assessment and Plan: Currently asymptomatic; give Pepcid p.r.n.. (6) Chronic kidney disease, stage 3 (moderate): Code(s): N18.3 - Chronic kidney disease, stage 3 (moderate) Status: Acute Assessment and Plan: Stable kidney function with a creatinine of 1. The monitor repeat chemistry. (7) Mild obstructive sleep apnea: Code(s): G47.33 - Obstructive sleep apnea (adult) (pediatric) Status: Acute Assessment and Plan: CPAP/BiPAP per home parameter. Oxygen supplementation as needed. Plan Code status full code. DVT prophylaxes with SCDs. HPI Data of Consult Consult date: 11/03/22 Requesting Physician: Dillon Fair MD Primary Care Provider: Alphonso Pollock MD Consult Narrative Reason for consult: Management of medical conditions. Narrative: Eve Lindsay is a 77 year old female with a past medical history including but not limited to Arthritis, Diabetes, GERD, Gastroesophageal reflux disease, ITB syndrome, Obesity, Statin myopathy with simvastatin with currently admitted postop day 0 left total knee replacement. She also carries a diagnosis of supraventricular tachycardia and and underwent a Holter monitoring on 05/04/2022 revealing supraventricular a to P activity and ventricular ectopic activity. The surgical procedure was uneventful. There was an estimated blood loss of 200 mL.? The patient was administered 2 g Ancef 1 more g of tranexamic acid at the time of wound closure.? At the time of the my evaluation the patient is stable and afebrile with the following vital signs blood pressure 131/62, pulse 81, respiration 12, O2 sat 99% on room air. Review of Systems Review of Systems: All systems reviewed & are unremarkable except as noted in HPI and below PMFSH Past Medical History Medical History Arthritis Diabetes GERD (gastroesophageal reflux disease) ITB syndrome Obesity Preoperative clearance Statin myopathy with simvastatin Surgical History Surgical History H/O section 1969 1973 H/O knee surgery 01/20/2021 left side History of esophagogastroduodenoscopy 08/27/2020 Dr. Fuentes History of hip surgery right side 2009 Family History Family History Mother Hypertension Sibling Alcoholism Social History Social History Smoking packs per day: 1 Smoking cigarettes per day: 20.0 Years smoked: 17 Smoking pack-years: 17.00 Smoking status: Former smoker Tobacco type: cigarettes Second hand tobacco smoke exposure: No Smoking end date: 10/13/85 Alcohol intake: current Drinks per week: 1 Alcohol use details: TWO DRINKS PER MONTH Substance use: never Substance use type: does not use Other substance usage details: CBD oil Lack of Transportation: No Lack of Fo
[2022-11-03] MEDS: oxyCODONE HCL (*CRX) 5 MG TAB IR PO ×4 (00:11→11:23)
[2022-11-03] MEDS: ACETAMINOPHEN 500 MG TABLET 1000 MG PO ×2 (05:41→12:05)
[2022-11-03 06:00] VITALS: BP 119/88; PULSE 77; RESP 16; TEMP 36.3; O2SAT 98
[2022-11-03 06:46] LABS: Basophils Percent Auto 0.3 % (0.2-1.2); Eosinophils Absolute Auto 0.1 K/mm3 (0-0.3); Eosinophils Percent Auto 0.7 % (0-4.4); Hematocrit 30.7 % (37.0-47.0); Hemoglobin 10.2 g/dL (12.0-15.0); Immature Granulocyte Absolute 0.06 K/mm3 (0.00-0.031); Immature Granulocyte Percent A 0.4 % (0-0.5); Lymphocytes Absolute Auto 2.75 K/mm3 (0.9-3.2); Mean Corpuscular HGB Conc 33.2 g/dl (32-36); Mean Corpuscular Hemoglobin 31.1 pg (26-34); Mean Corpuscular Volume 93.6 fl (80-100); Mean Platelet Volume 8.9 fl (7.4-10.4); Monocytes Absolute Auto 1.3 K/mm3 (0.1-0.6); Monocytes Percent Auto 8.7 % (2.6-8.5); Neutrophils Absolute Auto 10.2 K/mm3 (1.3-6.7); Neutrophils Percent Auto 70.9 % (45.5-73.1); Platelet Count Result 238 k/mm3 (150-375); Red Blood Count 3.28 M/mm3 (4.2-5.4); Red Cell Distribution Width 13.1 % (11.5-14.5); White Blood Count 14.4 K/mm3 (4.5-10.0)
[2022-11-03 07:00] LABS: Potassium 4.4 mmol/L (3.4-5.0)
[2022-11-03 07:09] LABS: Anion Gap 7 mmol/L (8-16); Blood Urea Nitrogen 17 mg/dL (7-17); Calcium 8.5 mg/dL (8.4-10.2); Carbon Dioxide 25 mmol/L (22-30); Chloride 94 mmol/L (98-107); Estimated CRCL calculation 43 ml/min; Estimated Glomerular Filt Rate 54; Glucose 112 mg/dL (65-110); Sodium 126 mmol/L (137-145)
[2022-11-03 07:19] LABS: Glucose Point of Care 103 mg/dl (65-105)
--- NOTE | 2022-11-03 07:23 | PM.DS ---
DS: Admitting Diagnosis Discharge Date 11/03/2022 Admitting Diagnosis Osteoarthritis left knee grade 2 valgus deformity, treated with total knee arthroplasty on 11/02/2022 DS: Discharge Diagnosis Discharge Diagnosis (1) Left knee DJD: Code(s): M17.12 - Unilateral primary osteoarthritis, left knee Status: Acute DS: Summary Hospital Course Hospital Course: Patient was admitted as outpatient overnight for observation following total knee replacement yesterday afternoon. She is alert and oriented this morning states she has been up several times use the bathroom and tolerated weight-bearing and is using the knee. She has intact sensation and motor function left foot. There is no significant swelling the incision is dry. Calf is nontender. Her labs this morning look fine. Hemoglobin is 10.2. Her preop hemoglobin was 11.2 so she had preoperative chronic anemia which is a little bit worse with expected blood loss dropped after total knee replacement. Her creatinine runs borderline elevated and today it is 1.0. Her creatinine clearance is 43. Her GFR is 54. Her creatinine has run between 0.9 and 1.05 during the past 15 months. She is chronically somewhat hypertensive and we will resume her blood pressure medications as her blood pressure has been mildly hypertensive overnight. Her sodium is a little bit low at 126. It might be best to hold her hydrochlorothiazide medication as this promotes hyponatremia potentially. I will ask the hospitalist to address that. We will discharge her early this afternoon if she does well with physical therapy. Hemoglobin A1c was ordered last night and is pending. In September it was normal at 5.5. Precautions were discussed with her particularly with respect elevation. She is weight-bearing as tolerated physical therapy and has outpatient physical therapy scheduled. Status at Discharge Cognitive/behavioral status at discharge: Patient is alert oriented in stable Time Spent with Patient Time attestation: Total time spent providing and/or coordinating discharge services: DS: Data Data Completed and Pending Labs on day of discharge: Labs from last 24 hours 11/03/22 11/03/22 11/03/22 07:12 06:35 06:35 WBC 14.4 H RBC 3.28 L Hgb 10.2 L Hct 30.7 L MCV 93.6 MCH 31.1 MCHC 33.2 RDW 13.1 Plt Count 238 MPV 8.9 Immature Gran % (Auto) 0.4 Neut % (Auto) 70.9 Lymph % (Auto) 19.0 [place] % (Auto) 8.7 H Eos % (Auto) 0.7 Baso % (Auto) 0.3 Lymph # (Auto) 2.75 [place] # (Auto) 1.3 H Eos # (Auto) 0.1 Baso # (Auto) 0.0 Abs Immat Gran (auto) 0.06 H Absolute Neuts (auto) 10.2 H Absolute Nucleated RBC 0.0 Nucleated RBC % 0.0 Sodium 126 L Potassium 4.4 Chloride 94 L Carbon Dioxide 25 Anion Gap 7 L BUN 17 Creatinine 1.00 Estim Creat Clear Calc 43 Estimated GFR 54 L Glucose 112 H POC Capillary Glucose 103 Hemoglobin A1c Calcium 8.5 Blood Type Antibody Screen 11/03/22 11/02/22 11/02/22 06:35 19:54 16:07 WBC RBC Hgb Hct MCV MCH MCHC RDW Plt Count MPV Immature Gran % (Auto) Neut % (Auto) Lymph % (Auto) [place] % (Auto) Eos % (Auto) Baso % (Auto) Lymph # (Auto) [place] # (Auto) Eos # (Auto) Baso # (Auto) Abs Immat Gran (auto) Absolute Neuts (auto) Absolute Nucleated RBC Nucleated RBC % Sodium Potassium Chloride Carbon Dioxide Anion Gap BUN Creatinine Estim Creat Clear Calc Estimated GFR Glucose POC Capillary Glucose 140 H 138 H Hemoglobin A1c Pending Calcium Blood Type Antibody Screen 11/02/22 11/02/22 10:45 10:42 WBC RBC Hgb Hct MCV MCH MCHC RDW Plt Count MPV Immature Gran % (Auto) Neut % (Auto) Lymph % (Auto) [place] % (Auto) Eos % (Auto) Baso % (Auto) Lymph # (Auto) [place] # (Auto) Eos
[2022-11-03 07:24] VITALS: BP 107/64; PULSE 67; RESP 18; TEMP 36.6; O2SAT 99
[2022-11-03] MEDS: APIXABAN 2.5 MG TABLET PO (08:39)
[2022-11-03] MEDS: hydroCHLOROthiazide 12.5 MG CAPSULE PO (08:40)
[2022-11-03] MEDS: IRBESARTAN 75 MG TABLET PO (08:40)
[2022-11-03] MEDS: ONDANSETRON INJ 4 MG/2 ML VIAL IV PUSH ×2 (08:40→12:36)
[2022-11-03] MEDS: allopurinoL 100 MG TABLET PO (08:40)
[2022-11-03] MEDS: CELECOXIB 100 MG CAPSULE PO (08:40)
[2022-11-03] MEDS: SENNA/DOCUSATE SODIUM TABLET 2 TAB PO (08:40)
[2022-11-03] MEDS: metFORMIN HCL XR 500 MG TAB.SR.24H PO (08:40)
[2022-11-03] MEDS: PANTOPRAZOLE 40 MG TABLET PO (08:40)
[2022-11-03] MEDS: polyethylene glycoL 3350 17 GM POWD.PACK PO (08:41)
--- NOTE | 2022-11-03 09:57 | WPDANESPN ---
Anes - Prog Note Post-Op Date/Time: 11/03/22 09:57 Vital Signs: Last Vital Signs Temp 36.6 C 11/03/22 07:24 Pulse 67 11/03/22 07:24 Resp 18 11/03/22 07:24 BP 107/64 11/03/22 07:24 Pulse Ox 99 11/03/22 07:24 O2 Del Method Room Air 11/03/22 08:00 O2 Flow Rate 8 11/02/22 16:20 Pain Score (VAS): 0 I/O: Intake & Output 11/02/22 11/03/22 11/03/22 23:59 07:59 15:59 Intake Total 1300 350 240 Balance 1300 350 240 Laboratory Tests 11/03/22 06:35 11/03/22 06:35 11/02/22 11/02/22 11/02/22 10:42 10:45 16:07 WBC RBC Hgb Hct MCV MCH MCHC RDW Plt Count MPV Immature Gran % (Auto) Neut % (Auto) Lymph % (Auto) [place] % (Auto) Eos % (Auto) Baso % (Auto) Lymph # (Auto) [place] # (Auto) Eos # (Auto) Baso # (Auto) Abs Immat Gran (auto) Absolute Neuts (auto) Absolute Nucleated RBC Nucleated RBC % Sodium Potassium Chloride Carbon Dioxide Anion Gap BUN Creatinine Estim Creat Clear Calc Estimated GFR Glucose POC Capillary Glucose 99 138 H Hemoglobin A1c Calcium Blood Type B Negative Antibody Screen Negative 11/02/22 11/03/22 11/03/22 19:54 06:35 06:35 WBC 14.4 H RBC 3.28 L Hgb 10.2 L Hct 30.7 L MCV 93.6 MCH 31.1 MCHC 33.2 RDW 13.1 Plt Count 238 MPV 8.9 Immature Gran % (Auto) 0.4 Neut % (Auto) 70.9 Lymph % (Auto) 19.0 [place] % (Auto) 8.7 H Eos % (Auto) 0.7 Baso % (Auto) 0.3 Lymph # (Auto) 2.75 [place] # (Auto) 1.3 H Eos # (Auto) 0.1 Baso # (Auto) 0.0 Abs Immat Gran (auto) 0.06 H Absolute Neuts (auto) 10.2 H Absolute Nucleated RBC 0.0 Nucleated RBC % 0.0 Sodium Potassium Chloride Carbon Dioxide Anion Gap BUN Creatinine Estim Creat Clear Calc Estimated GFR Glucose POC Capillary Glucose 140 H Hemoglobin A1c Pending Calcium Blood Type Antibody Screen 11/03/22 11/03/22 06:35 07:12 WBC RBC Hgb Hct MCV MCH MCHC RDW Plt Count MPV Immature Gran % (Auto) Neut % (Auto) Lymph % (Auto) [place] % (Auto) Eos % (Auto) Baso % (Auto) Lymph # (Auto) [place] # (Auto) Eos # (Auto) Baso # (Auto) Abs Immat Gran (auto) Absolute Neuts (auto) Absolute Nucleated RBC Nucleated RBC % Sodium 126 L Potassium 4.4 Chloride 94 L Carbon Dioxide 25 Anion Gap 7 L BUN 17 Creatinine 1.00 Estim Creat Clear Calc 43 Estimated GFR 54 L Glucose 112 H POC Capillary Glucose 103 Hemoglobin A1c Calcium 8.5 Blood Type Antibody Screen Patient Feedback: Patient satisfied with anesthetic care.
[2022-11-03 10:16] LABS: Hemoglobin A1C 5.7 % (<5.7)
== END 2022-11-03 13:40 | disposition home or self-care (01) ==
LOC: ANHSURGERY 09:43 → ANHSUROVER 11-03 07:10
PROVIDERS: Internal Medicine; PCP Family Medicine; Visit Provider Orthopaedic Surgery
PROC: (CPT 27447; principal; 2022-11-02 12:00)
DX: M17.12 Unilateral primary osteoarthritis, left knee (principal); Z79.84 Long term (current) use of oral hypoglycemic drugs; E11.9 Type 2 diabetes mellitus without complications; K21.9 Gastro-esophageal reflux disease without esophagitis; E66.9 Obesity, unspecified; Z68.33 Body mass index [BMI] 33.0-33.9, adult; Z87.891 Personal history of nicotine dependence
CPT/HCPCS: 27447; 36415; 73560; 80048; 82948; 83036; 85025; 86850; 86900; 86901; 97110; 97161; 97165; A9270; C1713; C1776; J0131; J0171; J0690; J1100; J2270; J2405; J2704; J2795; J3010; J3370; J7030; J7120

== ENCOUNTER 2023-03-22 14:14 | Emergency (ER) | payer MEDICARE, SELFPAY ==
[2023-03-22 14:25] VITALS: BP 148/64; PULSE 83; RESP 18; TEMP 36.4; O2SAT 100
--- NOTE | 2023-03-22 14:30 | ED.URI ---
HPI - URI/Sore Throat General Chief Complaint: Upper Respiratory Infection Stated Complaint: Cough,Sore Throat,Congestion Time Seen by Provider: 03/22/23 14:30 Source: patient Mode of arrival: ambulatory Limitations: no limitations History of Present Illness HPI Narrative: 77-year-old female presents with complaint of nasal congestion, cough, sore throat, postnasal drainage, body aches and chills for 4 days. Afebrile. Patient came home from floor in a 5 days ago. afebrile. Denies chest pain and shortness of breath. Patient states I a.m. assuming that it is viral but I do not want sometimes to get worse . Reports history of pneumonia. Patient did have a Home COVID test yesterday that was negative. All systems reviewed and negative except as noted above. Related Data Home Medications Medication Instructions Recorded Confirmed calcium carbonate 600 mg-vitamin 1 tablet PO BID 08/19/20 03/22/23 D3 10 mcg (400 unit) tablet (Calcium with Vitamin D) cholecalciferol (vitamin D3) 10 10 mcg PO DAILY 08/19/20 03/22/23 mcg (400 unit) chewable tablet (Vitamin D3) melatonin 10 mg tablet 10 mg PO HS PRN Insomnia 08/19/20 03/22/23 ckynpbdf-rqr-fpzwl acid 0.4 1 tablet PO DAILY 08/19/20 03/22/23 mg-lycopene 300 mcg-lutein 250 mcg tablet (Centrum Silver) coenzyme Q10 150 mg capsule 150 mg PO DAILY 03/02/21 03/22/23 omega-3 acid ethyl esters 1 gram 4 cap PO DAILY 03/03/21 03/22/23 capsule (Lovaza) flaxseed 1,000 mg capsule 1,000 mg PO DAILY 10/17/22 03/22/23 Allergies Allergy/AdvReac Type Severity Reaction Status Date / Time lisinopril AdvReac Intermediate cough Verified 03/22/23 14:18 rosuvastatin [From Crestor] AdvReac Intermediate leg cramps Verified 03/22/23 14:18 simvastatin [From Zocor] AdvReac Intermediate leg cramps Verified 03/22/23 14:18 Cfbeiva-SAD-DrD Reductase AdvReac Intermediate leg cramps Verified 03/22/23 14:18 Inhibitor [Btwvtvy-Hdc-Crv Reductase Inhibitor] amoxicillin AdvReac Mild Rash Verified 03/22/23 14:18 poison jag extract AdvReac Mild Rash Verified 03/22/23 14:18 Review of Systems Review of Systems: CONSTITUTIONAL: Denies fever. Reports chills, fatigue or sweats. EYES: Denies visual changes, redness, or discharge. ENT: reports rhinorrhea, congestion, sore throat. Denies otalgia. CARDIOVASCULAR: Denies chest pain, palpitations, or edema.s RESPIRATORY: report cough. Denies dyspnea. GASTROINTESTINAL: Denies abdominal pain, nausea, vomiting, or diarrhea. GENITOURINARY: Denies dysuria or hematuria. SKIN: Denies rash or itching. MUSCULOSKELETAL: Denies back pain, joint pain, or myalgia. NEUROLOGIC: Denies headache, numbness, or weakness. PSYCHIATRIC: Denies anxiety or depression. All other systems reviewed are negative, except as documented in HPI. [facility] Past Medical History Medical History (Updated 03/22/23 @ 14:44 by Betsey Stearns NP) Arthritis Diabetes GERD (gastroesophageal reflux disease) ITB syndrome Left knee pain Obesity Preoperative clearance Statin myopathy with simvastatin Syncope Surgical History Surgical History H/O section 1969 1973 H/O knee surgery 01/20/2021 left side History of esophagogastroduodenoscopy 08/27/2020 Dr. Fuentes History of hip surgery right side 2010 History of total knee arthroplasty Family History Family History Mother Hypertension Sibling Alcoholism Social History Social History Smoking packs per day: 1 Smoking cigarettes per day: 20.0 Years smoked: 17 Smoking pack-years: 17.00 Smoking status: Former smoker Tobacco type: cigarettes Second hand tobacco smoke exposure: No Smoking end date: 10/13/85 Alcohol intake: current Drinks per week: 1 Alcohol use details: TWO DRINKS PER MONTH Substance use:
== END 2023-03-22 14:47 | disposition home or self-care (01) ==
PROVIDERS: Emergency Provider Nurse Practitioner Family; PCP Family Medicine
DX: J02.9 Acute pharyngitis, unspecified (principal); Z87.891 Personal history of nicotine dependence; M19.90 Unspecified osteoarthritis, unspecified site; E11.9 Type 2 diabetes mellitus without complications; K21.9 Gastro-esophageal reflux disease without esophagitis
CPT/HCPCS: 99213; G0463

== ENCOUNTER 2023-07-06 13:09 | Emergency (ER) | payer MEDICARE, SELFPAY ==
[2023-07-06 13:20] VITALS: BP 149/87; PULSE 79; RESP 18; TEMP 36.6; O2SAT 100
--- NOTE | 2023-07-06 13:35 | ED.EAR ---
HPI - Ear Problem General Chief complaint: Ear Stated complaint: rt ear pain Time Seen by Provider: 07/06/23 13:25 Source: patient and RN notes reviewed Mode of arrival: ambulatory Limitations: no limitations History of Present Illness HPI Narrative: Patient presents today complaining of a 2 week history of right ear pain that is worse today. She describes the pain is itchy and sore. She has been using hydrocortisone on a Q-tip inside of her ear to help with her symptoms, which provides little relief. Denies any additional symptoms. Related Data Home Medications Medication Instructions Recorded Confirmed calcium carbonate 600 mg-vitamin 1 tablet PO BID 08/19/20 07/06/23 D3 10 mcg (400 unit) tablet (Calcium with Vitamin D) cholecalciferol (vitamin D3) 10 10 mcg PO DAILY 08/19/20 07/06/23 mcg (400 unit) chewable tablet (Vitamin D3) melatonin 10 mg tablet 10 mg PO HS PRN Insomnia 08/19/20 07/06/23 gjopnvir-sus-vanwc acid 0.4 1 tablet PO DAILY 08/19/20 07/06/23 mg-lycopene 300 mcg-lutein 250 mcg tablet (Centrum Silver) omega-3 acid ethyl esters 1 gram 4 cap PO DAILY 03/03/21 07/06/23 capsule (Lovaza) apixaban 2.5 mg tablet (Eliquis) 2.5 mg PO BID 07/06/23 07/06/23 losartan 50 mg tablet 50 mg PO DAILY 07/06/23 07/06/23 oxycodone 5 mg capsule 5 mg PO Q4H PRN Pain 07/06/23 07/06/23 Allergies Allergy/AdvReac Type Severity Reaction Status Date / Time lisinopril AdvReac Intermediate cough Verified 07/06/23 13:22 rosuvastatin [From Crestor] AdvReac Intermediate leg cramps Verified 07/06/23 13:22 simvastatin [From Zocor] AdvReac Intermediate leg cramps Verified 07/06/23 13:22 Dlwnscb-VQC-HyC Reductase AdvReac Intermediate leg cramps Verified 07/06/23 13:22 Inhibitor [Uvfsaqz-Nxx-Wzi Reductase Inhibitor] amoxicillin AdvReac Mild Rash Verified 07/06/23 13:22 poison jag extract AdvReac Mild Rash Verified 07/06/23 13:22 Review of Systems Review of Systems: CONSTITUTIONAL: Denies body aches, fever, chills, or sweats. EYES: Denies visual changes, redness, or discharge. ENT: Denies rhinorrhea, congestion, sore throat. + right ear pain and itching CARDIOVASCULAR: Denies chest pain, palpitations, or edema. RESPIRATORY: Denies cough or dyspnea. GASTROINTESTINAL: Denies abdominal pain, nausea, vomiting, or diarrhea. GENITOURINARY: Denies dysuria or hematuria. SKIN: Denies rash, itching, or wounds. MUSCULOSKELETAL: Denies back pain, joint pain, or myalgia. NEUROLOGIC: Denies headache, numbness, tingling, or weakness. PSYCH: Denies depression or anxiety. [facility] Past Medical History Medical History Arthritis Diabetes GERD (gastroesophageal reflux disease) ITB syndrome Left knee pain Obesity Preoperative clearance Statin myopathy with simvastatin Syncope Surgical History Surgical History H/O section 1969 1973 H/O knee surgery 01/20/2021 left side History of esophagogastroduodenoscopy 08/27/2020 Dr. Fuentes History of hip surgery right side 2010 History of total knee arthroplasty Family History Family History Mother Hypertension Sibling Alcoholism Social History Social History Smoking packs per day: 1 Smoking cigarettes per day: 20.0 Years smoked: 17 Smoking pack-years: 17.00 Smoking status: Former smoker Tobacco type: cigarettes Second hand tobacco smoke exposure: No Smoking end date: 10/13/85 Alcohol intake: current Drinks per week: 1 Alcohol use details: TWO DRINKS PER MONTH Substance use: never Substance use type: does not use Other substance usage details: CBD oil Lack of Transportation: No Lack of Food: Never True Current Housing: I Do Not Have Housing Concerned About Future Housi
== END 2023-07-06 13:35 | disposition home or self-care (01) ==
PROVIDERS: Emergency Provider Nurse Practitioner; PCP Family Medicine
DX: L08.9 Local infection of the skin and subcutaneous tissue, unspecified (principal); M19.90 Unspecified osteoarthritis, unspecified site; E11.9 Type 2 diabetes mellitus without complications; K21.9 Gastro-esophageal reflux disease without esophagitis; E66.9 Obesity, unspecified; Z68.33 Body mass index [BMI] 33.0-33.9, adult; Z87.891 Personal history of nicotine dependence
CPT/HCPCS: 99213; G0463

== ENCOUNTER 2024-01-01 09:28 | Emergency (ER) | payer MEDICARE, SELFPAY ==
--- NOTE | ~2024-01-01 | XR_ITS ---
EXAMINATION: XR chest 2V DATE: 01/01/2024 09:56 INDICATION: Cough and congestion TECHNIQUE: PA and lateral views of the chest are obtained. COMPARISON: None available FINDINGS: The lungs are free of acute opacities. No pleural effusion or pneumothorax. The cardiomedia stinal silhouette is normal. There is moderate thoracic spondylosis. Healed right-sided rib fractures are noted. IMPRESSION: 1. No acute cardiopulmonary abnormality. Reviewed, dictated and finalized at location [employer]
--- NOTE | 2024-01-01 09:36 | ED.URI ---
HPI - URI/Sore Throat General Chief Complaint: Upper Respiratory Infection Stated Complaint: Sore Throat, Cough, Chest Pain Time Seen by Provider: 01/01/24 09:37 Source: patient Mode of arrival: ambulatory Limitations: no limitations History of Present Illness HPI Narrative: Eve is a 78-year-old female patient presenting to the clinic today with complaints of sore throat, cough, chest tightness with coughing/and taking deep breaths. Reports cough is productive with dark yellow phlegm in the morning and it clears up during the daytime. Denies any fever, chills, or body aches. Symptoms have been going on for 1 week. MD elicited complaint: sore throat and nasal congestion Related Data Home Medications Medication Instructions Recorded Confirmed calcium carbonate 600 mg-vitamin 1 tablet PO BID 08/19/20 01/01/24 D3 10 mcg (400 unit) tablet (Calcium with Vitamin D) cholecalciferol (vitamin D3) 10 10 mcg PO DAILY 08/19/20 01/01/24 mcg (400 unit) chewable tablet (Vitamin D3) melatonin 10 mg tablet 10 mg PO HS PRN Insomnia 08/19/20 01/01/24 vblrksom-oml-bmhmy acid 0.4 1 tablet PO DAILY 08/19/20 01/01/24 mg-lycopene 300 mcg-lutein 250 mcg tablet (Centrum Silver) omega-3 acid ethyl esters 1 gram 4 cap PO DAILY 03/03/21 01/01/24 capsule (Lovaza) Allergies Allergy/AdvReac Type Severity Reaction Status Date / Time lisinopril AdvReac Intermediate cough Verified 01/01/24 09:30 rosuvastatin [From Crestor] AdvReac Intermediate leg cramps Verified 01/01/24 09:30 simvastatin [From Zocor] AdvReac Intermediate leg cramps Verified 01/01/24 09:30 Qeymjnw-AMO-DpA Reductase AdvReac Intermediate leg cramps Verified 01/01/24 09:30 Inhibitor [Wvuyndf-Ntb-Ebm Reductase Inhibitor] amoxicillin AdvReac Mild Rash Verified 01/01/24 09:30 poison jag extract AdvReac Mild Rash Verified 01/01/24 09:30 Review of Systems Review of Systems: Pertinent positives per HPI. Patient denies any fever, chills, rash, headache, visual changes, dizziness, palpitations, nausea, vomiting, diarrhea, constipation, abdominal pain, or any urinary issues. [facility] Past Medical History Medical History Arthritis Diabetes Eye abnormalities GERD (gastroesophageal reflux disease) ITB syndrome Left knee pain Obesity Preoperative clearance Statin myopathy with simvastatin Syncope Surgical History Surgical History H/O section 1969 1973 H/O knee surgery 01/20/2021 left side History of esophagogastroduodenoscopy 08/27/2020 Dr. Fuentes History of hip surgery right side 2010 History of total knee arthroplasty Family History Family History Mother Hypertension Sibling Alcoholism Social History Social History Smoking packs per day: 1 Smoking cigarettes per day: 20.0 Years smoked: 17 Smoking pack-years: 17.00 Smoking status: Former smoker Tobacco type: cigarettes Second hand tobacco smoke exposure: No Smoking end date: 10/13/85 Alcohol intake: current Drinks per week: 1 Alcohol use details: TWO DRINKS PER MONTH Substance use: never Substance use type: does not use Other substance usage details: CBD oil Lack of Transportation: No Lack of Food: Never True Current Housing: I Do Not Have Housing Concerned About Future Housing: No Difficulty Paying Gas/Electric Bills: No Difficulty Paying for Meds: No Currently Unemployed: No Education: Associate Degree Difficulty w/ Childcare or Family Care: No Living arrangements: with family Occupation/Education: retired Gender identity (if verbalized by the patient): Female Sexual Orientation (if Verbalized by the Patient): Straight or Heterosexual Spiritual care concerns: No Agree to blood pr
[2024-01-01 09:39] VITALS: BP 142/70; PULSE 90; RESP 18; TEMP 36.7; O2SAT 100
== END 2024-01-01 10:06 | disposition home or self-care (01) ==
PROVIDERS: Emergency Provider Nurse Practitioner Family; PCP Family Medicine
DX: J20.8 Acute bronchitis due to other specified organisms (principal); Z87.891 Personal history of nicotine dependence; M19.90 Unspecified osteoarthritis, unspecified site; E11.9 Type 2 diabetes mellitus without complications; K21.9 Gastro-esophageal reflux disease without esophagitis; E66.9 Obesity, unspecified; Z68.33 Body mass index [BMI] 33.0-33.9, adult
CPT/HCPCS: 71046; 99213; G0463

== ENCOUNTER 2025-07-20 10:07 | Emergency (ER) | payer MEDICARE, SELFPAY ==
--- NOTE | ~2025-07-20 | XR_ITS ---
EXAMINATION: XR hip RT min 2V, 07/20/2025 10:25 CDT HISTORY: groin pain,pt worried about hip replacement/worked out a lot COMPARISON: No comparisons available. Findings: No acute fracture or malalignment. Arthroplasty intact Soft tissues unremarkable. Impression: No acute fracture or malalignment. Reviewed, dictated and finalized at location A. Impression: No acute fracture or malalignment.
--- OUTSIDE RECORDS SUMMARY | 2025-07-20 10:10 | XMS_ITS | Encounter Summary ---
Author Organization 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 Gender Identity Not on file Sexual Orientation Not on file documented as of this encounter Plan of Treatment Not on file documented as of this encounter Procedures Procedure Name Priority Date/Time Associated Diagnosis Comments SCAN - RADIOLOGY/IMAGING 08/02/2016 documented in this encounter Results * SCAN - RADIOLOGY/IMAGING (08/02/2016) Anatomical Region Laterality Modality Other us Provider Scanning Final Result documented in this encounter Visit Diagnoses Not on filedocumented in this encounter Care Teams Machine Operator Slitter Technician Relationship Specialty Start Date End Date Elis Arreguin DO [facility] [place] [address] PCP - General Family Medicine 07/26/22 documented as of this encounter
--- OUTSIDE RECORDS SUMMARY | 2025-07-20 10:10 | XMS_ITS | Clinical Summary ---
Author Organization [facility] Address [address] [place] [address] Care Team Providers Care Criminal Justice Lawyer Name Role Phone Ronel Og Primary Care Provider [phone] Source Comments [facility],non-owned Affiliates and Associated Physician Practices is amultiple site organization consisting of ambulatory clinics and hospital sitesin [place], [place], [place] and [place]. This disclosure is being madepursuant to the Care Everywhere program and may not contain all information available regarding this patient. Last updated 18.[facility] Allergies Active Allergy Reactions Criticality Noted Date Comments Amoxicillin Urticaria,Rash Medium 02/13/2021 Medications * Be aware that medications may not be up to date on this document. Alwaysverify current medications with the patient. allopurinol (Zyloprim) 100 MG tablet Take 1 (one) tablet by mouth once daily 5 Active amitriptyline (Elavil) 10 MG tablet TAKE 1 TABLET BY MOUTH ONCE DAILY AT BEDTIME. MAY INCREASE TO 1 IN THE MORNING AND 1 AT NIGHT AFTER 2 WEEKS Active calcium carbonate (Caltrate) 600 MG tablet Take 2.5 (two and one-half) tablets by mouth 2 times daily Active celecoxib (CeleBREX) 100 MG capsule Take 1 (one) capsule by mouth once daily 5 Active Cholecalcifero l (Vitamin D3) 25 MCG (1000 UT) Take 2 (two) capsules by mouth once daily Active esomeprazole (NexIUM) 40 MG capsule Take 1 (one) capsule by mouth once daily 5 Active ezetimibe (Zetia) 10 MG tablet Take 1 (one) tablet by mouth once daily 5 Active irbesartan (Avapro) 300 MG tablet Take 1 (one) tablet by mouth once daily 5 Active melatonin 5 MG tablet Take 1 (one) tablet by mouth once daily as needed Active metFORMIN ER 24hr (Glucophage XR) 500 MG tablet Take 1 (one) tablet by mouth once daily Active Multiple Vitamins-Dakota als (Multi Vitamin/Minera ls) TABS Take 1 (one) tablet by mouth once daily Active [place]-3 Fatty Acids (fish oil) 1000 MG capsule omega-3 acid ethyl esters 1 gram capsule TAKE 4 CAPSULES BY MOUTH ONCE DAILY Active triamterene-hy droCHLOROthiaz helga (Maxzide) 75-50 MG tablet triamterene 75 mg-hydrochlorot hiazide 50 mg tablet TAKE 1 TABLET BY MOUTH ONCE DAILY Active Flaxseed, Linseed, (FLAXSEED OIL PO) Active albuterol HFA (ProAir HFA) 108 (90 Base) MCG/ACT inhaler Inhale 2 (two) puffs by mouth every 6 hours as needed for Cough, Shortness of Breath or Wheezing 8.5 g 5 Active azithromycin (Zithromax) 250 MG tablet Take 2 tablets on day 1, then take 1 tablet daily for 4 days 6 tablet 5 Active benzonatate (Tessalon) 100 MG capsule Take 1 (one) capsule by mouth 3 times daily as needed for Cough 30 capsule 5 07/05/20 25 Discontin ued(Clini eddi Decision) Encounters Date Type Department Care Team Description 07/05/2025 10:23 AM CDT - 07/05/2025 11:59 PM CDT Hospital Encounter [facility] [place] [address] Hem[address] [place] APRN-CNP Discharge Disposition: Home or Self Care 07/05/2025 10:00 AM CDT - 07/05/2025 10:22 AM CDT Hospital Encounter [facility] [place] [id number] Hemalatha Mat[place] APRN-CNP Discharge Disposition: Home or Self Care 07/05/2025 Travel from Last 3 Months Social History Tobacco Use Types Packs/Day Years Used Date Smoking Tobacco: Former Cigarettes Smokeless Tobacco: Never Tobacco Cessation:Counseling Given: Not Answered Alcohol Use Standard Drinks/Week Comments Not Currently 0 (1 standard drink = 0.6 oz pur e alcohol) PHQ-2 Answer Date Recorded Patient Health Questionnaire-2 Score 1 07/05/2025 Comments No Sex and Gender Information Value Date Recorded Sex Assigned at Not on file Legal Sex Female 8:04 AM CDT Gender Identity Not on file Sexual Orientation Not on file Last Filed Vital Signs Vital Sign Reading Time Taken Comments Blood Pressure 133/61 07/05/2025 10:16 AM CDT Pulse 81 07/05/2025 10:16 AM CDT Temperature 36.6 C (97.9 F) 07/05/2025 10:16 AM CDT Respiratory Rate 20 07/05/2025 10:16 AM CDT Oxygen Saturation 100% 07/05/2025 10:16 AM CDT Inhaled Oxygen Concentration - - Weight 83 kg (183 lb) 07/05/2025 10:16 AM CDT Height 160 cm (5' 3) 07/05/2025 10:16 AM CDT Body Mass Index 32.42 07/05/2025 10:16 AM CDT Plan of Treatment Health Maintenance Due Date Last Done Comments DTAP/TDAP/TD VACCINES (1 - Tdap) 1964 PNEUMOCOCCAL VACCINE 50+ (1 of 1 - PCV) 1995 ZOSTER VACCINE (1 of 2) 1995 Respiratory Syncytial Virus (RSV) Vaccine Pt: or over 60 yrs (1 - 1-dose 75+ series) 2020 MEDICARE AWV CALENDAR YEAR 2024 COVID-19 VACCINE (2023- season) 2025 07/25/2024, 08/12/2023, 09/12/2022, Additional history exists INFLUENZA VACCINE (#1) 2025 , 08/02/2023, 2022, Additional history exists BONE DENSITY TESTING Completed 11/28/2023 DEPRESSION SCREENING Completed 07/05/2025 HEPATITIS B VACCINE Aged Out No longe r eligible based on patient's age to complete this topic HIB VACCINE Aged Out No longer eligi ble based on patient's age to complete this topic HPV VACCINE Aged Out No longer eligi ble based on patient's age to complete this topic MENINGOCOCCAL (Group B) VACCINE SHARED DECISION-MAKING Aged Out No longer eligible based on patient's age to complete this topic MENINGOCOCCAL GROUPS A/C/Y/W VACCINE Aged Out No longer eligible based on patient's age to complete this topic Procedures Procedure Name Priority Date/Time Associated Diagnosis Comments XR CHEST 2VW STAT 07/05/2025 10:36 AM CDT Acute cough from Last 3 Months Results * XR Chest 2Vw (07/05/2025 10:36 AM CDT) Anatomical Region Laterality Modality Chest Radiographic Arlin ging 07/05/2025 10:4 6 AM CDT Impressions 07/05/2025 10:47 AM CDT IMPRESSION: No acute cardiopulmonary abnormalities. > Interpreting Provider: Chela Simeon MD on 07/05/2025 10:47 AM Narrative 07/05/2025 10:47 AM CDT PROCEDURE: XR CHEST 2VW DATE/TIME OF EXAM: 07/05/2025 10:36 AM CLINICAL INFORMATION: None relevant/not provided if blank. Indication: R05.1: Acute cough Additional History: COMPARISON: None. FINDINGS: Examination of the chest in PA and lateral views fails to reveal evidence of active infiltration or consolidation in either lung and there is no effusion or pneumothorax. The heart, aorta and diaphragm, and other mediastinal structures are normal in size, shape and position. The bony structures are unremarkable. Procedure Note Chela Simeon MD - 07/05/2025 PROCEDURE: XR CHEST 2VW DATE/TIME OF EXAM: 07/05/2025 10:36 AM CLINICAL INFORMATION: None relevant/not provided if blank. Indication: R05.1: Acute cough Additional History: COMPARISON: None. FINDINGS: Examination of the chest in PA and lateral views fails to revealevidence of active infiltration or consolidation in either lung and there is no effusion or pneumothorax. The heart, aorta and diaphragm, and other mediastinal structures are normal in size, shape and position. The bony structures are unremarkable. IMPRESSION: No acute cardiopulmonary abnormalities. > Interpreting Provider: Chela Simeon MD on 07/05/2025 10:47 AM Hemalatha Matute ELECTRONIC PUBLISHER-LOCKSTITCH LINING MAKER DIAGNOSTIC IMAGING ORDERABLE S Final Result from Last 3 Months Insurance MEDICARE U[employer] MANAGED MEDICARE ADV Care Teams Criminal Justice Lawyer Relationship Specialty Start Date End Date Ronel Og [facility] [address] [place] [id number] PCP - General 07/05/25
--- OUTSIDE RECORDS SUMMARY | 2025-07-20 10:10 | XMS_ITS | Encounter Summary ---
Author Organization [facility] Address [address] [place] [address] Phone Care Team Providers Care Drill Presser Name Role Phone Elis Arreguin DO Primary Care Provider + Encounter Details Date Type Department Care Team (Late st Contact Info) Description 11/28/2023 Orders Only [facility] Scanning, Provider Social History Tobacco Use Types Packs/Day Years Used Date Smoking Tobacco: Never AUDIT-C Answer Date Recorded Q1: How often do you have a drink containing alcohol? Never 08/10/2022 Q2: How many drinks containi ng alcohol do you have on a typical day when you are drinking? Patient does not drink Q3: How often do you have si x or more drinks on one occasion? 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 Gender Identity Not on file Sexual Orientation Not on file documented as of this encounter Plan of Treatment Not on file documented as of this encounter Procedures Procedure Name Priority Date/Time Associated Diagnosis Comments SCAN - RADIOLOGY/IMAGING 11/28/2023 documented in this encounter Results * SCAN - RADIOLOGY/IMAGING (11/28/2023) Anatomical Region Laterality Modality Other us Provider Scanning Final Result documented in this encounter Visit Diagnoses Not on filedocumented in this encounter Care Teams Drill Presser Relationship Specialty Start Date End Date Elis Arreguin DO [address] [place] [id number] PCP - General Family Medicine 07/26/22 documented as of this encounter
--- OUTSIDE RECORDS SUMMARY | 2025-07-20 10:10 | XMS_ITS | Clinical Summary ---
Author Organization [facility] Address [facility] [place] [address] Care Team Providers Care Applications Chemist Name Role Phone Elis Arreguin DO Primary Care Provider + Allergies Active Allergy Reactions Criticality Noted Date Comments Amoxicillin Hives,Rash Medium 02/13/2021 Medications allopurinoL (ZYLOPRIM) 100 mg tablet allopurinol 100 mg tablet TAKE 1 TABLET BY MOUTH ONCE DAILY 1 Active calcium carbonate (OS-ANNIKA) 1,500 mg (600 mg elemental) tablet Take 1 tablet (1,500 mg total) by mouth 2 times daily Active triamterene-hyd roCHLOROthiazid e (MAXZIDE,DYAZID E) 75-50 mg per tablet triamterene 75 mg-hydrochloroth iazide 50 mg tablet TAKE 1 TABLET BY MOUTH ONCE DAILY Active metFORMIN XR (GLUCOPHAGE XR) 500 mg 24 hr tablet Take 1 tablet (500 mg total) by mouth daily 2 Active irbesartan (AVAPRO) 75 mg tablet irbesartan 75 mg tablet TAKE 1 TABLET BY MOUTH ONCE DAILY Active celecoxib (CeleBREX) 100 mg capsule TAKE 1 CAPSULE BY MOUTH TWICE DAILY NEEDED FOR PAIN 2 Active cholecalciferol (Vitamin D3) 1,000 unit capsule Take 2 capsules (2,000 Units total) by mouth daily Active folic acid/multivit-m in/lutein (CENTRUM SILVER ORAL) Take by mouth Active omega 1-fdr-zjh-fish oil 1,000 mg (120 mg-180 mg) capsule Active amitriptyline (ELAVIL) 10 mg tablet Take 1 tablet (10 mg total) by mouth nightly Active Active Problems Problem Noted Date Diagnosed Date Osteoporosis 01/03/2025 Encounters Date Type Department Care Team Description 06/02/2025 Results Follow-Up [facility] [address] [place] [address] Sarah Poe MD Comprehensive metabolic panel, Alkaline phosphatase, bone specific, Beta-CrossLaps (Beta-CTx), Additional followed-up results: 5 05/23/2025 4:00 PM CDT Lab [facility] [address] [place] [address] Osteoporosis, unspecified osteoporosis type, unspecified pathological fracture presence 05/23/2025 3:00 PM CDT Office Visit [facility] [address] [facility] [address] [place] [address] Sarah Poe MD Osteoporosis, unspecified osteoporosis type, unspecified pathological fracture presence (Primary Dx); Height loss 05/23/2025 Telephone [facility] [address] [facility] [address] [place] [address] Sarah Poe MD 05/06/2025 Orders Only [facility] [address] [facility] [address] [place] [id number] Provider, MD Krzysztof from Last 3 Months Family History Medical History Relation Name Comments Osteoporosis Mother Relation Name Status Comments Mother Social History Tobacco Use Types Packs/Day Years Used Date Smoking Tobacco: Former Cigarettes Tobacco Cessation:Counseling Given: Not Answered AUDIT-C Answer Date Recorded Q1: How often [...] on file 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 Gender Identity Not on file Sexual Orientation Not on file Obstetrics History Last Filed Vital Signs Vital Sign Reading Time Taken Comments Blood Pressure 126/68 08/10/2022 10:01 AM CDT Pulse 79 08/10/2022 10:01 AM CDT Temperature - - Respiratory Rate - - Oxygen Saturation 99% 08/10/2022 10:01 AM CDT Inhaled Oxygen Concentration - - Weight 83.9 kg (185 lb) 05/23/2025 3:15 PM CDT Height 154.9 cm (5' 1) 05/23/2025 3:15 PM CDT Body Mass Index 34.96 05/23/2025 3:15 PM CDT Plan of Treatment Health Maintenance Due Date Last Done Comments Depression Screening 1945 Fall Risk Assessment 1945 Hepatitis C Screening 1945 Hepatitis B Screening 1963 Well Visit 65+ 2010 Covid-19 Vaccine (2024-2 6 season) 2025 03/14/2022, 08/24/2021, 01/17/2021, Additional history exists Influenza Vaccine (#1) 2025 , 07/07/2020, 08/30/2019, Additional history exists DTaP/Tdap/Td Vaccine (2 - Td or Tdap) 07/15/2025 07/15/2015 Osteoporosis Screening-Bone Density Scan 01/03/2027 01/03/2025, 11/28/2023 Pneumococcal vaccine 65+ Completed 05/22/2017, 12/2014 Zoster Vaccine Completed 04/29/2019, 01/12, 10/20/2012 Procedures Procedure Name Priority Date/Time Associated Diagnosis Comments EGFR Routine 05/23/2025 4:03 PM CDT Osteoporosis, unspecified osteoporosis type, unspecified pathological fracture presence VITAMIN D 25 HYDROXY Routine 05/23/2025 4:03 PM CDT Osteoporosis, unspecified osteoporosis type, unspecified pathological fracture presence PTH Routine 05/23/2025 4:03 PM CDT Osteoporosis, unspecified osteoporosis type, unspecified pathological fracture presence PHOSPHORUS Routine 05/23/2025 4:03 PM CDT Osteoporosis, unspecified osteoporosis type, unspecified pathological fracture presence OSTEOCALCIN Routine 05/23/2025 4:03 PM CDT Osteoporosis, unspecified osteoporosis type, unspecified pathological fracture presence BETA-CROSSLAPS (BETA-CTX) Routine 05/23/2025 4:03 PM CDT Osteoporosis, unspecified osteoporosis type, unspecified pathological fracture presence ALKALINE PHOSPHATASE, BONE SPECIFIC Routine 05/23/2025 4:03 PM CDT Osteoporosis, unspecified osteoporosis type, unspecified pathological fracture presence COMPREHENSIVE METABOLIC PANEL Routine 05/23/2025 4:03 PM CDT Osteoporosis, unspecified osteoporosis type, unspecified pathological fracture presence DEXA TBS AXIAL SKELETON BONE DENSITY 1 OR MORE SITES Schedule Routine, Read Routine (OP Routine) 01/03/2025 9:51 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 73 m2 Comment: Interpretive Data Reference Interval Normal >/= 90 mL/min/1.73m2 Mildly decreased* 60 - 89 mL/min/1.73m2 Mildly to moderately decreased 45 - 59 mL/min/1.73m2 Moderately to severely decreased 30 - 44 mL/min/1.73m2 Severely decreased 15 - 29 mL/min/1.73m2 Kidney Failure < 15 mL/min/1.73m2 *Relative to young adult level Estimated glomerular filtration rate is determined by the 2020 CKD-EPI equation recommended by the National Kidney Foundation (A Unifying Approach to GFR Estimation: Recommendations of the NKF-ASK Task Force on Reassessing the Inclusion of Race in Diagnosing Kidney Disease, JASN 2020). The CKD-EPI equation should not be used for patients with unstable renal function and has not been validated in children and those over 70. Current interpretive data was last reviewed 2021. Blood 05/23/2025 4:03 PM CDT 05/23/2025 6:36 PM CDT Sarah Poe MD LAB BLOOD ORDERABLES Final Result Performing Organization Address [facility] de Phone Number JOSEPH [facility] Department [place] [address] * Beta-CrossLaps (Beta-CTx) (05/23/2025 4:03 PM CDT) Pathologist [facility] Beta-CTx 140 pg/mL Comment: Interpretive Data Female: Premenopausal: 136 - 689 pg/mL Postmenopausal: 177 - 1015 pg/mL Male: 30 - 50 years: 131 - 670 pg/mL 51 - 70 years: 171 - 1060 pg/mL > 70 years: 152 - 858 pg/mL Current interpretive data was last revised on 2024. Blood 05/23/2025 4:03 PM CDT 05/23/2025 6:28 PM CDT Sarah Poe MD LAB BLOOD ORDERABLES Final Result Performing Organization Address [facility] de Phone Number JOSEPH [facility] Department [place] [address] * Alkaline phosphatase, bone specific (05/23/2025 4:03 PM CDT) Pathologist [facility] Alk phos, bone 5.9 mcg/L [place] Comment: REFERENCE VALUE <=14 (Premenopausal) <=22 (Postmenopausal) ADDITIONAL INFORMATION Liver-derived alkaline phosphatase (ALP) increases apparent measured bone alkaline phosphatase (BAP) in this assay by 2.5 mcg/L to 5.8 mcg/L for every 100 U/L of liver ALP. Accordingly, serum specimens with significant elevations of liver ALP activity may yield artificially elevated results in the BAP assay. Test Performed by: [facility] [address] [place] [address] Guest Services Assistant: Christopher Wills Ph.D.; CLIA# [id number] Blood 05/23/2025 4:03 PM CDT 05/23/2025 6:15 PM CDT Sarah Poe MD LAB BLOOD ORDERABLES Final Result Performing Organization Address [facility] Co de Phone Number [facility] [place] [address] [facility] * Osteocalcin (05/23/2025 4:03 PM CDT) Pathologist [facility] Osteocalcin 10.5 ng/mL Comment: Interpretive Data Female: Premenopausal: 7.6 - 35.1 ng/mL Postmenopausal: 7.3 - 38.5 ng/mL Male: 30 - 50 years: 8.4 - 36.7 ng/mL > 50 years: 9.9 - 35.6 ng/mL Current interpretive data was last revised on 2022. Blood 05/23/2025 4:03 PM CDT 05/23/2025 6:28 PM CDT Sarah Poe MD LAB BLOOD ORDERABLES Final Result Performing Organization Address City/[facility] Co de Phone Number [facility] Department [place] [address] * (ABNORMAL) Vitamin D 25 hydroxy (05/23/2025 4:03 PM CDT) Vitamin D 25-OH 86(H) 30 - 80 ng/mL Blood 05/23/2025 4:03 PM CDT 05/23/2025 6:28 PM CDT Sarah Poe MD LAB BLOOD ORDERABLES Final Result [facility] Department [place] [address] * Phosphorus (05/23/2025 4:03 PM CDT) [facility] Phosphorus, pl 3.6 2.3 - 4.5 mg/dL Blood 05/23/2025 4:03 PM CDT 05/23/2025 6:28 PM CDT Sarah Poe MD LAB BLOOD ORDERABLES Final Result Performing Organization Address City/[facility]/ZIP Co de Phone Number [facility] Department [place] [address] * PTH (05/23/2025 4:03 PM CDT) [facility] PTH 30 15 - 65 pg/mL Blood 05/23/2025 4:03 PM CDT 05/23/2025 6:08 PM CDT Sarah Poe MD LAB BLOOD ORDERABLES Final Result Performing Organization Address City/[facility] Co de Phone Number [facility] Department [place] [address] * (ABNORMAL) Comprehensive metabolic panel (05/23/2025 4:03 PM CDT) [facility] Sodium 136 135 - 145 mmol/L Potassium, pl 4.7 3.3 - 4.9 mmol/L [facility] Chloride 99 97 - 110 mmol/L [facility] CO2 28 22 - 32 mmol/L [facility] Anion gap 9 2 - 15 mmol/L [facility] BUN 28(H) 6 - 25 mg/dL [facility] Creatinine 1.55(H) 0.60 - 1.10 mg/dL [facility] Glucose 98 70 - 199 mg/dL [facility] Comment: Interpretive Data Fasting glucose >/= 126 mg/dl is diagnostic for diabetes. Fasting is defined as no caloric intake for at least 8 hours. Fasting glucose between 100 mg/dl to 125 mg/dl is diagnostic of prediabetes. In a patient with classic symptoms of hyperglycemia or hyperglycemic crisis, a random glucose >/= 200 mg/dl is diagnostic for diabetes. In the absence of unequivocal hyperglycemia, results should be confirmed by repeat testing. The classification and Diagnosis of Diabetes Diabetes Care 2021; 46: S19-S40. Current interpretive data was last revised 2022. Calcium 10.8(H) 8.5 - 10.3 mg/dL [facility] Bilirubin, total 0.4 0.1 - 1.2 mg/dL [facility] Protein, pl 7.6 6.5 - 8.5 g/dL [facility] Albumin 4.4 3.5 - 5.0 g/dL [facility] Alk phos 50 40 - 130 Units/L [facility] ALT 30 7 - 45 Units/L [facility] AST 41 10 - 45 Units/L [facility] Blood 05/23/2025 4:03 PM CDT 05/23/2025 6:28 PM CDT us Sarah Poe MD LAB BLOOD ORDERABLES Final Result [facility] Department [place] [address] * Dexa TBS Axial Skeleton Bone Density 1 or more sites (01/03/2025 9:51 AM SMOKE JUMPER SUPERVISOR) Anatomical Region Laterality Modality Wrist, Body N/A Radiographic Arlin ging Narrative 01/04/2025 7:10 AM 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 Based on machine cross-calibration and precision studies the least significant changes of this densitometer is 0.024 g/cm2 at the spine, 0.020 g/cm2 at the total proximal femur, and 0.014g/cm2 at the forearm. HISTORY: This is a 79 y.o. postmenopausal female with a history of osteoporosis. She reports that she has never smoked. She does not have any smokeless tobacco history on file. Currently on treatment with calcium and vitamin D and previously treated with alendronate (Fosamax), zoledronic acid (Reclast), and hormone replacement therapy. INDICATIONS: Menopause status and history of osteoporosis. FINDINGS: BONE MINERAL DENSITY OF THE LUMBAR SPINE Bone Mineral Density (BMD) of the lumbar spine was measured from L1-L3 and the average density was calculated to be 0.894 gm/cm2. This corresponds to a T-score (standard deviations from the mean of young adults) of -1.1. There is no previous study available for comparison. BONE MINERAL DENSITY OF THE PROXIMAL FEMUR Bone Mineral Density (BMD) of the left hip total was found to be 0.845 gm/cm2. This corresponds to a T-score standard deviations from the mean of young adults of -0.8. Femoral neck is 0.589 gm/cm2 with a T-score (standard deviations from the mean of young adults) of -2.3. There is no previous study available for comparison. BONE MINERAL DENSITY OF THE FOREARM Bone Mineral density (BMD) of the left proximal 1/3 of the radius measures 0.601 gm/cm2. This corresponds to a T-score (standard deviations from the mean of young adults) of -1.6. There is no previous study available for comparison. A forearm bone density study was performed in addition to the routine study because of department forearm protocol. SUMMARY: Bone mineral density shows evidence of low bone mass at the lumbar spine, proximal femur, and forearm and moderately increased fracture risk (Osteopenia). L4 excluded from bone mineral density analysis of the lumbar spine due to bone density being more than 1 standard deviation discrepant relative to one adjacent vertebra. Clinical correlation is recommended. The lumbar spine Trabecular Bone Score is 1.109 which suggests degraded bone microarchitecture compared to the general population. Final decisions regarding diagnostic or therapeutic recommendations should include BMD, TBS, additional clinical risk factors as well the clinical context of the patient. Please see attached TBS results for further details. ADDITIONAL COMMENTS: Postmenopausal Women and Men Over 50: Diagnostic criteria: Osteoporosis: BMD at or below -2.5 T-score; Osteopenia (low bone mass): BMD between -1.0 and -2.5 T-score. If the patient has a history of a fragility fracture, a fracture that occurred with trauma equivalent to a fall from a standing position or less, then the diagnosis is osteoporosis regardless of bone density. The history and data sections of the bone mineral density scan were prepared by Betsey Dowell) BLADIMIR who is accredited by the International Society of Clinical Densitometry. The overall patient assessment and scan interpretation were performed by Sarah Poe M.D. who is certified by the International Society of Clinical Densitometry. [id number] Sarah Poe MD IMG DXA PROCEDURES Final R esult from Last 3 Months or Most Recently Relevant to Health Maintenance Insurance MEDICARE AET SIG [id number] [facility] MEDICARE ADVANTAGE [facility] MEDICARE ADVANTAGE Care Teams Applications Chemist Relationship Specialty Start Date End Date Elis Arreguin DO [address] [place] [id number] PCP - General Family Medicine 07/26/22
[2025-07-20 10:15] VITALS: BP 148/74; PULSE 81; RESP 18; TEMP 36.4; O2SAT 100
--- NOTE | 2025-07-20 10:16 | ED_ITS ---
HPI - Extremity Problem General Chief complaint: Extremity Problem,Nontraumatic Stated complaint: RT Leg Injury Time Seen by Provider: 07/20/25 10:16 History of Present Illness HPI Narrative: 79 yo F presents with c/o R hip pain for 4 days. pt going on trip to [facility] in december. wants to be able to walk long distances so started some exercises that she remembered from physical therapy. Started having pain to R hip 1 hr later. taking tylenol every 6 to 8 hours to treat pain. Started applying ice yesterday. pt states that her hip replacement is 18 years old and concerned she caused injury to it. All systems reviewed and negative except as noted above. Related Data Home Medications ?Medication ?Instructions ?Recorded ?Confirmed ?Last Taken ?Type calcium 600 mg (as 1 tablet PO BID 08/19/2003/11/21 History carbonate)-vitamin D3 10 mcg (400 unit) tablet (Calcium with Vitamin D) zssxhtds-tew-xfsox acid 0.4 1 tablet PO DAILY 08/19/20 07/09/25 03/11/21 History mg-lycopene 300 mcg-lutein 250 mcg tablet (Centrum Silver) omega-3 acid ethyl esters 1 gram 4 cap PO DAILY 07/09/25 03/11/21 History capsule (Lovaza) amitriptyline 10 mg tablet 10 mg PO QHS 05/02/2507/09 Unknown History cholecalciferol (vitamin D3) 10 2,000 unit PO DAILY 07/09/25 Unknown History mcg (400 unit) chewable tablet (Vitamin D3) flaxseed PO 05/02/25 07/09/25 Unknown History melatonin 3 mg capsule 3 mg PO QHS 05/02/25 5 Unknown History wx-8-iqv-epa-fish oil-vit D3 300 cap PO 05/02/2507/09 Unknown History mg-1,000 mg-1,000 unit capsule (Fish Oil-Vit D3) Allergies Allergy/AdvReac Type Severity Reaction Status Date / Time lisinopril AdvReac Intermediate cough Verified 07/20/25 10:08 rosuvastatin (From Crestor) AdvReac Intermediate leg cramps Verified 07/20/25 10:08 simvastatin (From Zocor) AdvReac Intermediate leg cramps Verified 07/20/25 10:08 Krkpwno-TSE-SkQ Reductase AdvReac Intermediate leg cramps Verified 07/20/25 10:08 Inhibitor (Uxuppdd-Msg-Vni Reductase Inhibitor) amoxicillin AdvReac Mild Rash Verified 07/20/25 10:08 poison jag extract AdvReac Mild Rash Verified 07/20/25 10:08 [facility] Past Medical History Medical History Syncope Left knee pain GERD (gastroesophageal reflux disease) Diabetes Arthritis Obesity ITB syndrome Statin myopathy with simvastatin Surgical History Surgical History History of total knee arthroplasty H/O section 1969 1973 History of hip surgery right side 2010 H/O knee surgery 01/20/2021 left side History of esophagogastroduodenoscopy 08/27/2020 Dr. Fuentes Family History Family History Mother Hypertension Sibling Alcoholism Social History Social History Social History: 10/12/24 Patient declined SDOH Smoking packs per day: 1 Smoking cigarettes per day: 20.0 Years smoked: 17 Smoking pack-years: 17.00 Smoking status: Former smoker Tobacco type: cigarettes Second hand tobacco smoke exposure: No Smoking end date: 10/13/85 Alcohol intake: former Substance use: never Substance use type: does not use Other substance usage details: CBD oil Lack of Transportation: No Lack of Food: Never True Current Housing: I Do Not Have Housing Concerned About Future Housing: No Difficulty Paying Gas/Electric Bills: No Difficulty Paying for Meds: No Currently Unemployed: No Education: Associate Degree Difficulty w/ Childcare or Family Care: No Living arrangements: with family Occupation/Education: retired Gender identity (if verbalized by the patient): Female Sexual Orientation (if Verbalized by the Patient): Straight or Heterosexual Spiritual care concerns: No Agree to blood products: Yes Comments At time of signature, agree with nursing past medical, surgical, social and family history. There is no relevant family history pertinent to the presenting complaint. Exam Narrative: GENERAL: This is a well-nourished, well-developed patient, in no apparent distress. HEAD: normocephalic, atraumatic. EYES: PERRL. Sclera clear/white. Vision is grossly intact. EARS: External ears normal NOSE: External nose normal NECK: Neck supple, non-tender without lymphadenopathy, masses or thyromegaly. CARDIOVASCULAR: Regular rate and rhythm without murmurs, gallops, or rubs. RESPIRATORY: Clear to auscultation. Breath sounds equal bilaterally. No wheezes, rales, or rhonchi. SKIN: warm, Dry, intact with no suspicious lesions or rash, good texture and turgor. NEURO: awake, alert, and oriented to person, place and time. There were no obvious focal neurologic abnormalities. EXTREMITIES: tender to R groin, normal ROM to R hip, pain with R hip abduction Course Course Level of Care: Express Care Visit Vital Signs Vital signs: Vital Signs Temperature 36.4 C L 07/20/25 10:15 Pulse Rate 81 07/20/25 10:15 Respiratory Rate 18 07/20/25 10:15 Blood Pressure 148/74 H 07/20/25 10:15 Pulse Oximetry 100 07/20/25 10:15 Oxygen Delivery Room Air 07/20/25 10:15 Temperature 36.4 C L 07/20/25 10:15 Pulse Rate 81 07/20/25 10:15 Respiratory Rate 18 07/20/25 10:15 Blood Pressure 148/74 H 07/20/25 10:15 Pulse Oximetry 100 07/20/25 10:15 Oxygen Delivery Room Air 07/20/25 10:15 Reviewed MDM - Extremity (Nontraumatic) MDM Narrative Medical decision making narrative: x-ray of R hip normal. Recommend rest, ice, tylenol. pt plans to start water aerobics after hip pain improves. Will call her doctor or risk management specialist is pain not improving. Imaging Data My impression: agree with radiologist Radiologist's impression: EXAMINATION: XR hip RT min 2V, 07/20/2025 10:25 CDT HISTORY: groin pain,pt worried about hip replacement/worked out a lot COMPARISON: No comparisons available. Findings: No acute fracture or malalignment. Arthroplasty intact Soft tissues unremarkable. Impression: No acute fracture or malalignment. Discharge Plan Discharge Clinical Impression: Strain of muscle, fascia and tendon of right hip, initial encounter Patient Disposition: Home Condition: Stable Instructions: Hip Pain (ED) Additional Instructions: The x-ray of your right hip was negative for fracture. Take tylenol every 6 to 8 hours as needed for pain. Apply ice as needed for pain. Do light stretching exercises. Avoid exercises that increase pain. See your doctor in not improving. Patient Language: Citizen Of [place] Prescriptions: No Action flaxseed PO Rx Instructions: 450mg QD wk-4-jaa-epa-fish oil-vit D3 [Fish Oil-Vit D3] 300-1,000-1,000 mg-mg-unit capsule PO melatonin 3 mg capsule 3 mg PO QHS Rx Instructions: with L theanine 200mg amitriptyline 10 mg tablet 10 mg PO QHS Centrum Silver 0.4-300-250 mg-mcg-mcg Tablet 1 tablet PO DAILY calcium carbonate-vitamin D3 [Calcium with Vitamin D] 600 mg(1,500mg) -400 unit Tablet 1 tablet PO BID cholecalciferol (vitamin D3) [Vitamin D3] 10 mcg (400 unit) tablet,chewable 2,000 unit PO DAILY Patient Comments: TAKES 2000 IU ONCE A DAY omega-3 acid ethyl esters [Lovaza] 1 gram capsule 4 cap PO DAILY Patient Comments: TAKES FISH OIL PO 1000 MG QID metformin 500 mg tablet extended release 24 hr See Rx Instructions .ROUTE .COMPLEX Qty: 90 1RF Dose Instruction: Take 1 tablet by mouth once daily Rx Instructions: Take 1 tablet by mouth once daily esomeprazole magnesium 40 mg capsule,delayed release(DR/EC) See Rx Instructions .ROUTE .COMPLEX Qty: 90 1RF Dose Instruction: Take 1 capsule by mouth once daily Rx Instructions: Take 1 capsule by mouth once daily allopurinol 100 mg tablet See Rx Instructions .ROUTE .COMPLEX Qty: 90 1RF Dose Instruction: Take 1 tablet by mouth once daily Rx Instructions: Take 1 tablet by mouth once daily ezetimibe [Zetia] 10 mg tablet 10 mg PO DAILY Qty: 90 0RF celecoxib 100 mg capsule 100 mg PO DAILY Qty: 90 0RF irbesartan 300 mg tablet See Rx Instructions .ROUTE .COMPLEX Qty: 90 1RF Dose Instruction: Take 1 tablet by mouth once daily Rx Instructions: Take 1 tablet by mouth once daily triamterene-hydrochlorothiazid 75-50 mg tablet See Rx Instructions .ROUTE .COMPLEX Qty: 90 1RF Dose Instruction: Take 1 tablet by mouth once daily Rx Instructions: Take 1 tablet by mouth once daily Follow-up/Referrals: Ronel Og APN-C [Primary Care Provider, [facility]] Time of Disposition: 11:03
== END 2025-07-20 11:05 | disposition home or self-care (01) ==
PROVIDERS: Emergency Provider Nurse Practitioner Family; PCP Nurse Practitioner Family
DX: S76.011A Strain of muscle, fascia and tendon of right hip, initial encounter (principal); X58.XXXA Exposure to other specified factors, initial encounter; E11.9 Type 2 diabetes mellitus without complications; Z79.84 Long term (current) use of oral hypoglycemic drugs; K21.9 Gastro-esophageal reflux disease without esophagitis; M19.90 Unspecified osteoarthritis, unspecified site; E66.9 Obesity, unspecified; Z68.31 Body mass index [BMI] 31.0-31.9, adult; Z96.641 Presence of right artificial hip joint
CPT/HCPCS: 73502; 99213; G0463